=== PATIENT | female | born 1970 | race Caucasian/White ===

== ENCOUNTER 2017-05-23 09:18 | Emergency (ER) | payer OTHER, SELFPAY ==
[2017-05-23 09:19] VITALS: BP 159/89; PULSE 65; RESP 15; TEMP 36.9; O2SAT 100; BMI 36.3
--- NOTE | 2017-05-23 09:37 | ED.DCSUM_ITS ---
- ER Visit Summary Date of Service: 05/23/17 Chief Complaint: Chest pain History of Present Illness: The patient is a 47 F who was awakened from sleep at 0200 with chest heaviness located in the middle of her chest with radiation left-sided jaw associated with dyspnea. She reports she had difficulty getting back to sleep. At approximately 0430 she had nausea with dry heaves. She states the chest heaviness has been constant since onset. She states getting upright and walking causes her pain to be worse. There are no alleviating factors. She did complain of chills when she was awakened. She states she had a similar episode 5 years ago and had a cardiac catheterization because of a false positive stress test and her cardiac catheterization was normal with patent clumpy coronary vessels . Patient denies any fever night sweats weight loss or weight gain. She denies any ocular, visual or auditory symptoms. Denies any trouble with speech or swallowing. She denies cough. There is no history of PE or DVT. She has a leg pain, swelling discoloration. She denied diarrhea. She denies hematemesis , melena hematochezia. She denies any abdominal pain. She denies dysuria, frequency, urgency or hematuria. There is no history of trauma. Patient has history of depression and ulcerative colitis. Physical Examination: Vital signs are remarkable for blood pressure 159/89. HEENT exam is remarkable for mild excess thrombosis. (She denies history of thyroid disease and denies heat cold intolerance). Heart is regular without murmur, gallop or rub. S1 and S2 are normal. Lungs are clear to auscultation with good movement of air bilaterally. Abdomen is soft nontender with normal bowel sounds. There is no asymmetry, swelling, discoloration, leg vein distention, palpable cords or tenderness along the distribution of the deep venous system. Neuro exam is nonfocal. Test Results: Prehospital EKG was transmitted and revealed a sinus rhythm with no obvious ischemic changes. EKG in the department reveals a sinus rhythm rate of 60 with minimal nonspecific changes. Will obtain old for comparison. Single view portable chest x-ray was obtained and reviewed by me as normal. Cardiac silhouette, mediastinum and lung parenchyma are normal. Muscular skeletal structures are normal. CBC is unremarkable. BMP is unremarkable. Troponin is less than 0.02 with 7.5 hours of pain. Emergency Department Course and Treatment: Chest pain order set was initiated to evaluate patient's discomfort to determine cardiac versus pulmonary versus gastric versus other cause. Treatment Plan: In light of the fact the patient had a normal cardiac catheterization 5 years ago has no risk factors for coronary disease and has a heart score of less than 3 she will be discharged to home to follow-up with her PCP as needed. Disposition: Discharged home Impression: 1. Chest discomfort unknown etiology 2. Nausea and vomiting 3. History of depression This note was generated with [employer] dictation software. It may contain incorrect words, spelling, and punctuation that were not noted in review of the chart prior to signing ED Disposition - Plan for ED Patient: Disposition: Home or Assisted Living Chief Complaint: Chest Pain Instructions: ED Chest Pain NonCardiac Referrals: Charo Hooper MD [Primary Care Provider] - 3-5 Days
--- NOTE | 2017-05-23 09:47 | EKG12_ITS ---
Test Reason : CP Blood Pressure : / mmHG Vent. Rate : 060 BPM Atrial Rate : 060 BPM P-R Int : 160 ms QRS Dur : 084 ms QT Int : 378 ms P-R-T Axes : 041 025 011 degrees QTc Int : 378 ms Normal sinus rhythm with sinus arrhythmia Nonspecific ST abnormality Abnormal ECG Confirmed by ASHOK ARGUELLES, CHAVEZ ([id number]), department editor ALEXANDRIA PEÑA ([id number]) on 05/27/2017 1:13:03 PM Referred By: ADELIA Confirmed By:CHAVEZ PULIDO MD
--- NOTE | 2017-05-23 09:47 | RAD_ITS ---
STUDY: X-RAY CHEST REASON FOR EXAM: Female, 47 years old. Sent onset chest pain his morning. TECHNIQUE: Single AP upright portable chest view. COMPARISON: None available. FINDINGS: The lungs appear well ventilated and clear. There is no demonstrated pleural abnormality. Normal size heart. Normal mediastinum and romulo. Normal visualized pulmonary arteries. Normal visualized aortic arch and descending thoracic aorta. Trachea midline. Normal visualized thoracic spine. Normal visualized ribs, clavicles, and shoulders. There is no demonstrated abnormality of the visualized soft tissue structures of the upper abdomen. No subdiaphragmatic free air seen grossly. EKG wires overlie chest. Oxygen tubing overlies lower neck. RAD/Chest 1 View (Portable) IMPRESSION: Normal x-ray examination of the chest. Electronically Signed: Rogelio Chapin, at 11:08 EDT Tel , Service support ,
[2017-05-23 10:23] LABS: Absolute Lymphocyte Count 1.28 X10^3/ul (0.83-4.51); Absolute Neutrophil Count 5.3 X10^3/uL (2.0-7.7); Basophil# 0.02 X10^3/uL; Basophil% 0.3 % (0-1); Eosinophil# 0.03 X10^3/uL; Eosinophils% 0.4 % (0-5); Hematocrit 38.1 % (37-47); Hemoglobin 12.9 g/dl (12.0-15.0); Lymphocyte # 1.28 X10^3/ul (4.0); Lymphocyte % 18.5 % (19-41); Mean Corp Hgb Conc 33.9 g/gl (32-36); Mean Corpuscular Hgb 31.1 pg (27.0-32.0); Mean Corpuscular Volume 91.8 fL (81-99); Mean Platelet Vol. 10.3 fl (6.2-12.0); Monocyte# 0.31 X10^3/uL; Monocyte% 4.5 % (0-10); Neutrophil # 5.28 X10^3/uL (2.7-7.7); Neutrophil % 76.2 % (47-70); POSITIVE COUNT NO; POSITIVE DIFFERENTIAL NO; POSITIVE MORPHOLOGY NO; Platelet Count 226 K/mm3 (150-450); Red Blood Count 4.15 M/mm3 (4.2-5.4); White Blood Count 6.9 K/mm3 (4.4-11.0)
[2017-05-23 10:38] LABS: Anion Gap 8 (5-15); BUN 9 mg/dL (7-18); BUN/Creat Ratio 13.4 RATIO (10-20); Chloride 111 mmol/L (98-107); Creatinine, Serum 0.67 mg/dL (0.55-1.02); EST Glomerular Filtration Rate 99 mL/min (>60); Est Glom Filt Rate - Afr Amer 120 mL/min (>60); Estimated Creatinine Clearance 85.87 ml/min; Glucose 118 mg/dL (74-106); Potassium 3.5 mmol/L (3.5-5.1); Sodium Level 144 mmol/L (136-145)
[2017-05-23 10:41] VITALS: BP 145/85; PULSE 65; RESP 18; O2SAT 97
[2017-05-23 11:06] VITALS: BP 145/80; PULSE 74; RESP 18
[2017-05-23 11:19] VITALS: BP 141/85; RESP 74; TEMP -7.7; TEMP 18; O2SAT 98
== END 2017-05-23 11:21 | disposition home or self-care (01) ==
PROVIDERS: Emergency Provider Emergency Medicine; Family Provider Internal Medicine; PCP Internal Medicine
DX: R07.89 Other chest pain (principal); R11.2 Nausea with vomiting, unspecified; F32.9 Major depressive disorder, single episode, unspecified; Z87.891 Personal history of nicotine dependence; K51.90 Ulcerative colitis, unspecified, without complications; Z79.01 Long term (current) use of anticoagulants; Z79.899 Other long term (current) drug therapy
CPT/HCPCS: 71045; 80048; 84484; 85025; 93005; 99285; J7030

== ENCOUNTER 2017-10-18 07:30 | Outpatient (RCR) | payer OTHER, SELFPAY ==
--- NOTE | 2017-10-07 08:56 | HP.PTEVAL ---
Patient's Visit Information JAVON GUEVARA is a 47 year old F referred to Physical Therapy by Ismael Cantrell DPM with a diagnosis of R plantar fascitis, R PTTDq. Date of Evaluation: 10/02/17 Physical Therapist: Azeem Alicia - Visit Plan Frequency: 2x /Week Duration: 4-6 Weeks Plan: Start with US to plantar fascia origin, manual techniques, manual/HEP stretching, progressing to foot intrinsic strengthening and ankle stability exercises. - Subjective Subjective: Pt is here today for her initial evaluation with R plantar fascitis. Pt. reports having pain on and off for years. She had previously managed with injections, which had been helpful. Her most recent injections did not provide much help. Pt. reports having orthotics, but can not wear them as she had to wear dress shoes often with work. 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 Pt. denies N/T. Pt. reprots pain is at her plantar sufrace of her heel and into her plantar fascia. Pt. also reports having medial ankle pain. Pt. reports increased pain with walking and stairs, especially with a lot of walking. Pt. has reduced pain with sitting and lying. Pt. reports doing stretching x2 daily. Pt. is hopeful to reduce symptoms in order to complete her job and recreational walking without limitations or pain. - Pain R heel Pain Intensity (Out of 10): 5 Pain Intensity Range: 3, 8 - Objective POSTURE: Pt. has normal posture in stance, except: R foot slightly toes out, mild pes planus on her R side. Pt. has normal knee positioning. PALPATION: Pt. has increasred pain with palpation of post tib insertion, plantar fascia (origin the worst). NEUROLOGICAL: Pt. has normal senation throughout, normal DTR bilaterally. ROM: Pt. has tightness in R G/S complex- 10deg of DF, LLE at 17deg of DF. Pt. has normal rest of ROM without increase in symptoms. MMT: Pt. has normal strength throughout R ankle/foot, except decrease R foot intrinsic strength and decreased ankle INV 4/5. GAIT: Pt. ambulates with increased over pronation on R foot, increased R toes out. Pt. has slight R lateral lean durng R stance phase. STAIRS: Pt. has normal pattern, mild increase NW with R loaded phase with dsecending. - Goals Goal 1:: Pt. to be I with HEP. Goal Time Frame: 4-6 Weeks Goal 2:: Pt. to have normalized gait pattern without increase in symptoms for unlimited distances. Goal Time Frame: 4-6 Weeks Goal 3:: Pt. to have increased R foot intrinsic and ankle INV strength by 1/2 grade to reduce stress to longitudial arch with walking. Goal Time Frame: 4-6 Weeks Goal 4:: Pt. to complete her work day with 0-2/10 pain in R foot. Goal Time Frame: 4-6 Weeks Goal 5:: Pt. to have increased R ankle DF by 5-6 degress to decrease stress applied to plantar fascia with walking. Goal Time Frame: 4-6 Weeks - Rehabilitation Potential Physical Therapy Diagnosis: Pt. has signs and symptoms consistent with R plantar fascitis and posterior tibial tendonitis. Pt. has increased over pronation of R foot during stance phase with increased weakness of R foot intrinsics and post tib weakness. Pt. would benefit from PT to reduce stress applied to PTT during stance phase, increased strength of the musculature supporting her longitudinal arch. Rehabilitation Potential: Good - Anticipated Interventions Patient/Client Instruction: Educate patient on: Condition, Plan of Care, Risk Factors, Benefits of Fitness Program For the Purpose of:: To foster healthy habits, To improve decision making, To facilitate caregiver knowledge, To improve self management, To prevent re-injury, To improve ability to perform tasks related to life management, To improve tolerance to ADL's Therapeutic Exercise to Include: Strength training, Power training, Endurance training, Coordination, Postural training, Flexibilty training, Gait and locomotor training, Passive ROM, Active ROM For the Purpose of:: To decrease pain, To decrease swelling/inflammation, To increase ROM, To improve nutrient delivery to tissue, To increase oxygenation perfusion, To improve muscle performance and motor function, To improve gait and locomotor functions, To improve health of tissue, To decrease soft tissue restriction, To increase flexibility/ROM, To improve endurance, To improve balance Manual Therapy Techniques to Include: Trigger point massage, Massage, Mobilization, Functional dry needling, Soft tissue mobilization For the Purpose of:: To decrease pain, To decrease swelling/inflammation, To increase ROM, To improve nutrient delivery to tissue, To improve health of tissue, To decrease soft tissue restriction, To increase flexibility/ROM Ultrasound (thermal/non thermal): Yes For the Purpose of:: To decrease pain, To decrease swelling/inflammation, To increase ROM Thank you for the opportunity to evaluate your patient. For Medicare and Medicare HMO plans, please review the plan of care and approve it. It will need to be FAXED BACK to us at [phone] for Medicare purposes. Please let me know if there are questions or concerns regarding this plan of care. Physician Signature: Date:
--- NOTE | 2017-12-05 11:30 | HP.PTDCNRP_ITS ---
HP - Discharge Summary (1) - Patient Information JAVON GUEVARA was seen in my office for initial evaluation on 10/02/17. The following Plan of Care was established for this patient: Initial Frequency: 2x /Week Initial Duration: 4-6 Weeks - Anticipated Interventions Patient/Client Instruction: Educate patient on: Condition, Plan of Care, Risk Factors, Benefits of Fitness Program For the Purpose of:: To foster healthy habits, To improve decision making, To facilitate caregiver knowledge, To improve self management, To prevent re- injury, To improve ability to perform tasks related to life management, To improve tolerance to ADL's Therapeutic Exercise to Include: Strength training, Power training, Endurance training, Coordination, Postural training, Flexibilty training, Gait and loco motor training, Passive ROM, Active ROM For the Purpose of:: To decrease pain, To decrease swelling/inflammation, To increase ROM, To improve nutrient delivery to tissue, To increase oxygenation perfusion, To improve muscle performance and motor function, To improve gait and locomotor functions, To improve health of tissue, To decrease soft tissue restriction, To increase flexibility/ROM, To improve endurance, To improve balance Manual Therapy Techniques to Include: Trigger point massage, Massage, Mobilization, Functional dry needling, Soft tissue mobilization For the Purpose of:: To decrease pain, To decrease swelling/inflammation, To increase ROM, To improve nutrient delivery to tissue, To improve health of tissue, To decrease soft tissue restriction, To increase flexibility/ROM Ultrasound (thermal/non thermal): Yes For the Purpose of:: To decrease pain, To decrease swelling/inflammation, To increase ROM This patient was last seen in our office 10/18/17. Pertinent comments regarding their Physical therapy will appear below: Pt. was seen for her plantar fascitis. Pt. was treated with stretching, manual PT, DN, graston and US. Pt. was not make great improvements and decided to trial the EPAT machine with physician. Pt. has not jeimy seen in ~6 weeks and will be DC from PT at this point in time. At this point I will be discontinuing this patient from physical therapy. I would be happy to see this patient again in the future if found appropriate by the physician. Thank you! Azeem Alicia
== END 2017-10-18 19:00 | disposition home or self-care (01) ==
LOC: PT 07:30
PROVIDERS: Family Provider Internal Medicine; PCP Internal Medicine; Visit Provider Podiatrist
DX: M72.2 Plantar fascial fibromatosis (principal); M79.672 Pain in left foot; M21.6X9 Other acquired deformities of unspecified foot; M76.822 Posterior tibial tendinitis, left leg
CPT/HCPCS: 97035; 97140; 97161

== ENCOUNTER → 2018-02-03 07:00 | Outpatient (CLI) | payer OTHER, SELFPAY ==
--- NOTE | 2018-02-03 07:03 | BI_ITS ---
MAMMOGRAPHY - BILATERAL SCREENING REASON FOR EXAM: Female, 48 years old. Routine annual screening examination. PERTINENT HISTORY: Non-contributory. History of prior bilateral breast reduction surgery. TECHNIQUE: Digital bilateral breast allison (3D mammographic acquisition) in the CC and MLO projections. 2-D mediolateral oblique (MLO) and craniocaudad (CC) views of both breasts were obtained. CAD: Full Field Digital Mammography with Computer Added Detection was performed. COMPARISON: Comparison is made with prior study dated June 28, 2016 and July 08, 2014. FINDINGS: Breast Composition: The breasts are heterogeneously dense, which may obscure small masses. There are no dominant masses or suspicious calcifications. Stable small bilateral benign appearing axillary lymph nodes. No other significant abnormalities are identified. There has been no significant change since the prior study. BI/SCREENING MAMM (CAD), BILAT IMPRESSION: Stable bilateral screening mammogram. Yearly follow-up mammogram recommended. (A) ASSESSMENT CATEGORY: BIRADS Category 2: Benign. A letter regarding these results will be sent to the patient by the facility within 30 days. Approximately 10% of breast cancers are not detected by mammography. A normal mammogram should not delay biopsy of a clinically suspicious abnormality. [id number] Electronically Signed: Pavel Haas MD at 8:15 EST Tel [phone], Service support ,
== END ==
PROVIDERS: Family Provider Internal Medicine; PCP Internal Medicine; Referring Provider Internal Medicine; Visit Provider Internal Medicine
DX: Z12.31 Encounter for screening mammogram for malignant neoplasm of breast (principal)
CPT/HCPCS: 77063; 77067

== ENCOUNTER → 2018-09-23 14:03 | Outpatient (CLI) | payer SELFPAY ==
--- NOTE | 2018-09-23 14:09 | CT_ITS ---
STUDY: CARDIAC CALCIUM SCORING - CT CHEST REASON FOR EXAM: Female, 48 years old. Strong family history of coronary artery disease. Chest pain. RADIATION DOSAGE (If Supplied By Facility): CTDIvol = ( 12.19 ) mGy, DLP = ( 195.04 ) mGycm TECHNIQUE: Axial non-enhanced images were acquired through the heart for the sole purpose of measuring coronary artery calcium. Individualized dose optimization techniques were used for this CT. COMPARISON: None. FINDINGS: Please see the patient's medical record for a personalized calcium score. The visualized lungs are clear. The visualized soft tissues are within normal limits. CT/Limited Chest CT w/CCTA IMPRESSION: Please see the patient's medical record for a personalized calcium score. Please go to: [email or web address] , for a description of the calculator. Electronically Signed: Nick Platt, at 15:11 EDT Tel , Service support ,
[2018-09-23 14:28] VITALS: BP 158/77; PULSE 60; RESP 16; O2SAT 99; BMI 38.6
--- NOTE | 2018-09-23 16:02 | CA.SCORE ---
Calcium Scoring Date of Study:: 09/23/18 Coronary Calcium Scoring: High-resolution Computed Tomographic imaging of the chest was performed on 09/23/2018 with particular attention paid to the coronary arteries. Images from the examination were analyzed for the presence and extent of coronary artery calcification , using coronary calcium quantification software. The patient tolerated the procedure well and there were no complications. The results of the coronary calcification analysis are provided below. - Findings Left Main (LM): 0 Left Anterior Descending (LAD): 0 Left Circumflex (LCX): 5.96 Right Coronary Artery (RCA): 0 Total Agatston Score: 5.96 - Conclusion Calcium Scoring Interpretation: 0 No identifiable atherosclerotic plaque. Very low cardiovascular disease risk. <5% chance of presence coronary artery disease A Negative Examination 1-10 Minimal Plaque burden. Significant coronary artery disease very unlikely. 11-100 Mild plaque burden. Likely mild or minimal coronary atherosclerosis. 101-400 Moderate plaque burden Moderate non-obstructive coronary artery disease highly likely. Over 400 Extensive plaque burden. High likelihood of at least one significant coronary stenosis (>50% diameter) Calcium Score: 1 -10 Significant coronary artery disease very unlikely - 1. Percentile ranking: Between 75% and 95% of people of the same gender/similar age had the same or lower scores; 2. Continue cardiovascular risk factor evaluation and care as deemed appropriate.
== END ==
PROVIDERS: Family Provider Internal Medicine; PCP Internal Medicine; Referring Provider Internal Medicine; Visit Provider Internal Medicine
DX: Z82.49 Family history of ischemic heart disease and other diseases of the circulatory system (principal); E78.00 Pure hypercholesterolemia, unspecified
CPT/HCPCS: 75571; 76380

== ENCOUNTER → 2019-02-05 09:33 | Outpatient (CLI) | payer OTHER, SELFPAY ==
[2018-09-23 14:28] VITALS: BMI 38.6
--- NOTE | 2019-02-05 09:36 | BI_ITS ---
MAMMOGRAPHY - BILATERAL SCREENING REASON FOR EXAM: Female, 49 years old. Routine annual screening examination. PERTINENT HISTORY: Non-contributory. Prior bilateral breast reduction surgery. TECHNIQUE: Digital bilateral breast neri (3D mammographic acquisition) in the CC and MLO projections. 2-D mediolateral oblique (MLO) and craniocaudad (CC) views of both breasts were obtained. CAD: Full Field Digital Mammography with Computer Added Detection was performed. COMPARISON: Comparison is made with prior examination dated November 04, 2017 and June 28, 2016. FINDINGS: Breast Composition: The breasts are heterogeneously dense, which may obscure small masses. There are no dominant masses or suspicious calcifications. Stable benign-appearing bilateral axillary lymph nodes No other significant abnormalities are identified. There has been no significant change since the prior study. BI/SCREEN MAMM (CAD) W/NERI BILAT IMPRESSION: Stable bilateral screening mammogram. Yearly follow-up mammogram recommended. (A) ASSESSMENT CATEGORY: BIRADS Category 2: Benign. A letter regarding these results will be sent to the patient by the facility within 30 days. Approximately 10% of breast cancers are not detected by mammography. A normal mammogram should not delay biopsy of a clinically suspicious abnormality. [id number] Electronically Signed: Pavel Haas, at 13:30 EST , Service support ,
== END ==
PROVIDERS: Family Provider Internal Medicine; PCP Internal Medicine; Referring Provider Internal Medicine; Visit Provider Internal Medicine
DX: Z12.31 Encounter for screening mammogram for malignant neoplasm of breast (principal)
CPT/HCPCS: 77063; 77067

== ENCOUNTER → 2020-02-11 07:42 | Outpatient (CLI) | payer OTHER, SELFPAY ==
[2018-09-23 14:28] VITALS: BMI 38.6
--- NOTE | 2020-02-11 07:44 | BI_ITS ---
MAMMOGRAPHY - BILATERAL SCREENING REASON FOR EXAM: Female, 50 years old. Routine annual screening examination. PERTINENT HISTORY: Non-contributory. History of prior bilateral breast reduction surgery. TECHNIQUE: Digital bilateral breast neri (3D mammographic acquisition) in the CC and MLO projections. 2-D mediolateral oblique (MLO) and craniocaudad (CC) views of both breasts were obtained. CAD: Full Field Digital Mammography with Computer Added Detection was performed. COMPARISON: Comparison is made with prior study dated 02/05/2019 and 02/03/2018. FINDINGS: Breast Composition: The breasts are heterogeneously dense, which may obscure small masses. There are no dominant masses or suspicious calcifications. Stable benign-appearing bilateral axillary lymph nodes. No other significant abnormalities are identified. There has been no significant change since the prior study. BI/SCREEN MAMM (CAD) W/NERI BILAT IMPRESSION: Stable bilateral screening mammogram. Yearly follow-up mammogram recommended. (A) ASSESSMENT CATEGORY: BIRADS Category 2: Benign. A letter regarding these results will be sent to the patient by the facility within 30 days. Approximately 10% of breast cancers are not detected by mammography. A normal mammogram should not delay biopsy of a clinically suspicious abnormality. [id number] Electronically Signed: Pavel Haas, at 8:45 EST , Service support ,
== END ==
PROVIDERS: PCP Internal Medicine; Referring Provider Obstetrics & Gynecology Gynecology; Visit Provider Obstetrics & Gynecology Gynecology
DX: Z12.31 Encounter for screening mammogram for malignant neoplasm of breast (principal)
CPT/HCPCS: 77063; 77067

== ENCOUNTER → 2022-02-12 | Outpatient (CLI) | payer OTHER, SELFPAY ==
--- NOTE | 2022-02-12 09:04 | BI_ITS ---
MAMMOGRAPHY - BILATERAL SCREENING REASON FOR EXAM: Female, 52 years old. Routine annual screening examination. PERTINENT HISTORY: Non-contributory. History of prior bilateral breast reduction surgery. TECHNIQUE: Digital bilateral breast neri (3D mammographic acquisition) in the CC and MLO projections. 2-D mediolateral oblique (MLO) and craniocaudad (CC) views of both breasts were obtained. CAD: Full Field Digital Mammography with Computer Added Detection was performed. COMPARISON: Comparison is made with prior study dated 02/11/2020 and 02/05/2019. FINDINGS: Breast Composition: The breasts are heterogeneously dense, which may obscure small masses. There are no dominant masses or suspicious calcifications. Stable benign-appearing bilateral axillary lymph nodes. No other significant abnormalities are identified. There has been no significant change since the prior study. BI/SCRN MAMM (CAD)W/NERI BILAT IMPRESSION: Stable bilateral screening mammogram. Yearly follow-up mammogram recommended. (A) ASSESSMENT CATEGORY: BIRADS Category 2: Benign. A letter regarding these results will be sent to the patient by the facility within 30 days. Approximately 10% of breast cancers are not detected by mammography. A normal mammogram should not delay biopsy of a clinically suspicious abnormality. [id number] Electronically Signed: Pavel Haas MD at 15:33 EST ,
== END | disposition home or self-care (01) ==
LOC: OPBI 09:01
PROVIDERS: PCP Internal Medicine; Referring Provider Internal Medicine; Visit Provider Internal Medicine
DX: Z12.31 Encounter for screening mammogram for malignant neoplasm of breast (principal)
CPT/HCPCS: 77063; 77067

== ENCOUNTER → 2022-04-04 | Outpatient (CLI) | payer OTHER, SELFPAY ==
[2022-04-04 15:39] LABS: Absolute Lymphocyte Count 2.07 X10^3/uL (0.83-4.51); Absolute Neutrophil Count 4.1 X10^3/uL (2.0-7.7); Basophil# 0.04 X10^3/uL; Basophil% 0.6 % (0-1); Eosinophils% 1.5 % (0-5); Hematocrit 38.3 % (37-47); Hemoglobin 12.9 g/dL (12.0-15.0); Lymphocyte # 2.07 X10^3/ul (0.83-4.51); Lymphocyte % 30.3 % (19-41); Mean Corp Hgb Conc 33.7 g/dL (32-36); Mean Corpuscular Hgb 30.4 pg (27.0-32.0); Mean Corpuscular Volume 90.3 fL (81-99); Mean Platelet Vol. 10.2 fl (6.2-12.0); Monocyte# 0.49 X10^3/uL; Monocyte% 7.2 % (0-10); NRBC Flagged by Analyzer 0 % (0-5); Neutrophil # 4.12 X10^3/uL (2.7-7.7); Neutrophil % 60.3 % (47-70); Platelet Count 229 K/mm3 (150-450); RBC Distribution Width CV 12.5 % (11.6-14.6); RBC Distribution Width SD 40.7 fl (35.1-43.9); Red Blood Count 4.24 M/mm3 (4.2-5.4); White Blood Count 6.8 K/mm3 (4.4-11.0)
[2022-04-04 15:56] LABS: Erythrocyte Sedimentation Rate 8 mm/hr (0-30)
[2022-04-04 16:40] LABS: ALB/GLOB Ratio 1.1 RATIO (0.9-2.4); AST(SGOT) 15 U/L (15-37); Alanine Aminotransfer ALT/SGPT 28 U/L (13-56); Albumin, Serum 3.8 g/dL (3.2-5.0); Alkaline Phosphatase 84 U/L (45-117); Anion Gap 5 (5-15); BUN 16 mg/dL (7-18); BUN/Creat Ratio 20.1 RATIO (10-20); CRP < 2.90 mg/L (0.0-3.0); Calcium,Total 9.3 mg/dL (8.5-10.1); Chloride 108 mmol/L (98-107); EST Glomerular Filtration Rate 80 mL/min (>60); Est Glom Filt Rate - Afr Amer 97 mL/min (>60); Globulin 3.5 g/dL (2.2-4.2); Glucose 98 mg/dL (74-106); LDH 168 U/L (84-246); Potassium 3.6 mmol/L (3.5-5.1); Protein, Total 7.3 g/dL (6.4-8.2); Sodium Level 141 mmol/L (136-145)
[2022-04-06 15:09] LABS: Anti-Centromere B Ab <0.2 AI (0.0-0.9); Anti-Chromatin <0.2 AI (0.0-0.9); Anti-Jo <0.2 AI (0.0-0.9); Anti-Scleroderma-70 AB <0.2 AI (0.0-0.9); Endomysial Antibody IgA Negative (Negative); RNP Ab <0.2 AI (0.0-0.9); SJOGREN'S Anti-SS-A test < 0.2 AI (0.0-0.9); SJOGREN'S Anti-SS-B test < 0.2 AI (0.0-0.9); Smith Ab <0.2 AI (0.0-0.9)
[2022-04-06 20:06] LABS: Immunoglobulin A 98 mg/dL (87-352); t-Transglutaminase IgA <2 U/mL (0-3)
[2022-04-06 20:10] LABS: Anti-dsDNA Ab 2 IU/mL (0-9)
[2022-04-12 08:09] LABS: Albumin 3.7 g/dL (2.9-4.4); Alpha-1-Globulins 0.2 g/dL (0.0-0.4); Alpha-2-Globulins 0.6 g/dL (0.4-1.0); Cytoplasmic Ab (C-ANCA) <1:20 titer (Neg:<1:20); Gamma Globulin 1.2 g/dL (0.4-1.8); Immunoglobulin A 103 mg/dL (87-352); Immunoglobulin E 50 IU/mL (6-495); Immunoglobulin G 1147 mg/dL (586-1602); Immunoglobulin M 160 mg/dL (26-217); PROEL- TOTAL PROTEIN 6.8 g/dL (6.0-8.5)
[2022-04-13 18:53] LABS: Perinuclear Ab (P-ANCA) <1:20 titer (Neg:<1:20)
== END | disposition home or self-care (01) ==
LOC: LAB 14:36
PROVIDERS: PCP Internal Medicine; Visit Provider Nurse Practitioner Adult Health
DX: K51.90 Ulcerative colitis, unspecified, without complications (principal)
CPT/HCPCS: 36415; 80053; 82784; 82785; 83516; 83615; 84165; 85025; 85652; 86140; 86225; 86235; 86255; 86256; 86334

== ENCOUNTER → 2022-05-11 | Outpatient (CLI) | payer OTHER, SELFPAY ==
[2022-05-15 08:58] LABS: Calprotectin, Stool 48 ug/g (0-120)
== END | disposition home or self-care (01) ==
LOC: LABSPEC 07:46
PROVIDERS: PCP Internal Medicine; Referring Provider Nurse Practitioner Adult Health; Visit Provider Nurse Practitioner Adult Health
DX: K51.90 Ulcerative colitis, unspecified, without complications (principal)
CPT/HCPCS: 83630; 83993

== ENCOUNTER 2022-07-17 10:52 | Day surgery (SDC) | payer OTHER, SELFPAY ==
[2022-07-17] VITALS (7 sets, daily range): BP systolic 112–132; BP diastolic 73–80; PULSE 69–83; RESP 16–18; TEMP 36.6–37; O2SAT 98–100; BMI 41.0
[2022-07-17] MEDS: Lactated Ringers 1,000 ML 15 ML IV (11:15)
--- NOTE | 2022-07-17 11:45 | HP.PCM_ITS ---
History and Physical Date of Admission: 07/17/22 ?52 F who presents to the office today today to establish for ulcerative colitis which was diagnosed at age 17. Had alopecia from asacol at approx age 20. She took Lialda (once daily mesalamine) 2 pills daily for at least 10 yrs but recently stopped it since she didn't note any change in symptoms. Flares at least once a month x several days at a time, bloating, pain. Not sure if IBD or IBS when she has symptoms. Increased abd and rectal pain in last few months--rectal and lower abd pains. Either feels constipated or to lesser extent has diarrhea. Has frequent tenesmus. No melena or hematochezia. Doesn't take anything for constipation. Tries to watch what she eats. Lactose intolerant. Hiatal hernia diagnosed last year on EGD. Heartburn, burping. Taking pantoprazole 40 mg once a day helps. No dysphagia but can feel pills passing in esophagus. No nausea, vomiting, early satiety. No upper abd pain. Very bothered by constipation and bloating. 2021 EGD 2020 Colonoscopy PMH: chronic idiopathic hives (prednisone x 6 mos in 2021, gained 30 lbs), anxiety, depression, endometriosis, hyperlipidemia, insomnia, migraines, vitamin D deficiency Past surgical history: Left knee arthroscopy, breast reduction Father had colon cancer age 76 ROS Const Constitutional: No fatigue ENT ENT: No difficulty swallowing Gastro GI: No abdominal pain, belching, bloating, change in bowel habits, change in stool character, coffee ground emesis, constipation, cramping, diarrhea, heartburn, difficulty swallowing, feeling full early, excessive flatus, incontinent of stools, Vomiting blood/hematemesis, Blood in stool, loose stools, Black,tarry stools, nausea/dyspepsia, pain with swallowing, vomiting or other Musc Musculoskeletal: Positive for joint swelling, numbness and tingling; No joint pain Skin Skin: No yellowing of the eye or itchy eyes Neuro Neurology: Positive for numbness and tingling Psych Psychiatric: Positive for anxiety and Positive for depression Endo Endocrine: No fatigue Aller/Imm Allergy/Immunologic: No itchy eyes Moose/Lymp Hematologic/Lymphatic: No easy bleeding or easy bruising Exam Const General: cooperative and comfortable Nutritional Appearance: obese Orientation: alert, awake and oriented x3 HENMT Head: normal to inspection Eyes Sclera: sclerae normal Neck Neck: normal visual inspection Resp Effort & Inspection: normal respiratory effort Skin General: no rashes or lesions noted Neuro Gait: normal gait Psych Mood: congruent mood Quality Reporting Tobacco Screening ([facility] 138) Smoking Status: Former smoker Assessment and Plan Assessment and Plan (1) Ulcerative colitis: ?Status:?Chronic ?Plan: 52 yr old female with ulcerative colitis, most recently treated with Lialda which she stopped due to perceived lack of efficacy, who is interested in establishing with new GI for possible different treatment Labs to eval for inflammation, other autoimmune, celiac; will call her with results Colonoscopy to eval/bx for UC activity, f/u in office 2 wks later Once we determine if UC is active then we can discuss other treatment options Miralax daily for constipation (2) Irritable bowel syndrome: ?Plan: see above ? ? ? Orders: Orders Comprehensive Metabolic Profil Today K51.90 - Ulcerative colitis, unspecified, without complications ? CRP Today K51.90 - Ulcerative colitis, unspecified, without complications ? LDH Today K51.90 - Ulcerative colitis, unspecified, without complications ? CBC W/Diff, Automated Today K51.90 - Ulcerative colitis, unspecified, without complications ? Erythrocyte Sed Rate Today K51.90 - Ulcerative colitis, unspecified, without complications ? STU Comprehensive Panel Today K51.90 - Ulcerative colitis, unspecified, without complications ? Calprotectin, Stool Today K51.90 - Ulcerative colitis, unspecified, without complications ? Stool Lactoferrin/WBC Today K51.90 - Ulcerative colitis, unspecified, without complications ? ANCA Today K51.90 - Ulcerative colitis, unspecified, without complications ? Celiac Disease Profile Today K51.90 - Ulcerative colitis, unspecified, without complications ? Immunoglobulins G/A/M/E Today K51.90 - Ulcerative colitis, unspecified, without complications ? ZACHARIAH + Protein Elect, Serum Today K51.90 - Ulcerative colitis, unspecified, without complications ? I have examined the patient and the H&P has been reviewed. There are no clinical changes since date of exam.
--- NOTE | 2022-07-17 12:00 | COLBX_PTH ---
PATIENT: JAVON GUEVARA LOC: EN U#:[id number] AGE/SX: 52/F ROOM: RE07/17/[address]: Dr. Anthony Coelho DO : 1970 BED: DIS: 07/17/2022 SPEC #: [id number] RECD: 07/17/22 15:02 STATUS: FELIPE RELm #: [id number] GAGANDEEP: 07/17/22 12:[address]: Antohny Coelho DEPT: SURGICAL PATHOLOGY RECD BY: Caty Galeano ENTERED: 07/18/22 10:38 SP TYPE: COLON BX OT DR: Dr. Charo Hooper MD Tissues: A - Ileum, NOS B - COLON BIOPSY Procedures: Surgery Specimen Level IV HEADER OPERATION: Colonoscopy (MAC) PRE-OP DIAGNOSIS: Ulcerative colitis TISSUE SUBMITTED: A ? Terminal ileum biopsy, B ? Random colon biopsy MICROSCOPIC DIAGNOSIS A. Terminal ileum, biopsy: No pathologic change. B. Colon, random biopsy: No pathologic change. AM:james 07/19/2022 MICROSCOPIC DESCRIPTION Slides are reviewed. GROSS DESCRIPTION A - Received in fixative is one container labeled with the patient's name and designated terminal ileum biopsy. The specimen consists of multiple irregular fragments of light freitas soft tissue that in aggregate measure 1.5 x 0.3 x 0.1 cm. The specimen is totally submitted in one cassette. B - Received in fixative is one container labeled with the patient's name and designated random colon biopsy. The specimen consists of multiple irregular fragments of light freitas soft tissue that in aggregate measure 1.5 x 0.8 x 0.1 cm. The specimen is totally submitted in one cassette. / SJ:james 07/18/2022 TC:5 CPT: 02902 x2
--- NOTE | 2022-07-17 12:23 | OP.COLON_ITS ---
Patient Name: Stella Herr Procedure Date: 07/17/2022 11:45 AM Date of : 1970 Age: 52 Procedure: Colonoscopy Indications: Generalized abdominal pain, Family history of colon cancer in a first-degree relative Providers: Anthony Coelho DO Referring MD: Anthony Coelho DO Medicines: Monitored Anesthesia Care Patient Profile: This is a 52 year old female. Refer to note in patient chart for documentation of history and physical. Last Colonoscopy: 3 years ago. Complications: No immediate complications. Procedure: Pre-Anesthesia Assessment: - Prior to the procedure, a History and Physical was performed, and patient medications and allergies were reviewed. The risks and benefits of the procedure and the sedation options and risks were discussed with the patient. All questions were answered and informed consent was obtained. Patient identification and proposed procedure were verified by the physician. Mental Status Examination: alert and oriented. Airway Examination: normal oropharyngeal airway and neck mobility. Respiratory Examination: clear to auscultation. CV Examination: normal. Prophylactic Antibiotics: The patient does not require prophylactic antibiotics. Prior Anticoagulants: The patient has taken no previous anticoagulant or antiplatelet agents. ASA Grade Assessment: II - A patient with mild systemic disease. After reviewing the risks and benefits, the patient was deemed in satisfactory condition to undergo the procedure. The anesthesia plan was to use monitored anesthesia care (MAC). Immediately prior to administration of medications, the patient was re-assessed for adequacy to receive sedatives. The heart rate, respiratory rate, oxygen saturations, blood pressure, adequacy of pulmonary ventilation, and response to care were monitored throughout the procedure. The physical status of the patient was re-assessed after the procedure. After I obtained informed consent, the scope was passed under direct vision. Throughout the procedure, the patient's blood pressure, pulse, and oxygen saturations were monitored continuously. The colonoscope was introduced through the anus and advanced to the terminal ileum. The colonoscopy was performed without difficulty. The patient tolerated the procedure well. The quality of the bowel preparation was adequate. Scope In: 11:56:50 AM Scope Withdrawal Time 0 hours 11 minutes 22 seconds Scope Out: 12:11:23 PM Total Procedure Duration Time 0 hours 14 minutes 33 seconds Findings: The perianal and digital rectal examinations were normal. An area of mildly congested mucosa was found at the hepatic flexure. Biopsies were taken with a cold forceps for histology. Verification of patient identification for the specimen was done. Estimated blood loss was minimal. Scattered small and large-mouthed diverticula were found in the recto-sigmoid colon and sigmoid colon. A patchy area of the distal ileum and terminal ileum was congested. Biopsies were taken with a cold forceps for histology. Verification of patient identification for the specimen was done. Estimated blood loss was minimal. Impression: - Congested mucosa at the hepatic flexure. Biopsied. - Diverticulosis in the recto-sigmoid colon and in the sigmoid colon. - Congested mucosa in the distal ileum and in the terminal ileum. Biopsied. Recommendation: - Discharge patient to home. - Resume previous diet. - Continue present medications. - Await pathology results. - Repeat colonoscopy in 5 years for surveillance. Procedure Code(s): --- Professional --- 47276, Colonoscopy, flexible; with biopsy, single or multiple CPT copyright 2017 [employer]. All rights reserved. The codes documented in this report are preliminary and upon air traffic controller review may be revised to meet current compliance requirements. Anthony Coelho DO 07/17/2022 12:23:18 PM This report has been signed electronically. Number of Addenda: 0 Note Initiated On: 07/17/2022 11:45 AM
--- NOTE | 2022-07-17 12:23 | OP.CCLET_ITS ---
07/17/2022 Charo Hooper Re : Colonoscopy procedure for Stella Herr Dear Sandie This procedure was performed on Sunday, July 17, 2022. My impressions and recommendations are as follows: Impressions : - Congested mucosa at the hepatic flexure. Biopsied. - Diverticulosis in the recto-sigmoid colon and in the sigmoid colon. - Congested mucosa in the distal ileum and in the terminal ileum. Biopsied. Recommendations : - Discharge patient to home. - Resume previous diet. - Continue present medications. - Await pathology results. - Repeat colonoscopy in 5 years for surveillance. My findings are described in the full procedure note, which is enclosed. If I can be of further assistance, please feel free to contact me at . Sincerely, Anthony Coelho, 07/17/2022 12:23:18 PM This report has been signed electronically.
== END 2022-07-17 13:04 | disposition home or self-care (01) ==
LOC: EN 10:53 → AC 10:54
PROVIDERS: PCP Internal Medicine; Referring Provider Internal Medicine; Visit Provider Internal Medicine Gastroenterology
PROC: 0DJD8ZZ Inspection of Lower Intestinal Tract, Via Natural or Artificial Opening Endoscopic (ICD-10-PCS; CPT 45378; principal; 2022-07-17 11:55)
DX: K57.30 Diverticulosis of large intestine without perforation or abscess without bleeding (principal); K51.90 Ulcerative colitis, unspecified, without complications; Z87.891 Personal history of nicotine dependence; Z80.0 Family history of malignant neoplasm of digestive organs; Z79.899 Other long term (current) drug therapy
CPT/HCPCS: 45380; 88305; J7120; J2405

== ENCOUNTER → 2023-09-02 | Outpatient (CLI) | payer OTHER, SELFPAY ==
--- NOTE | 2023-09-02 13:47 | BI_ITS ---
MAMMOGRAPHY - BILATERAL SCREENING REASON FOR EXAM: Female, 53 years old. Routine annual screening examination. PERTINENT HISTORY: Non-contributory. History of prior bilateral breast reduction surgery. TECHNIQUE: Digital bilateral breast neri (3D mammographic acquisition) in the CC and MLO projections. 2-D mediolateral oblique (MLO) and craniocaudad (CC) views of both breasts were obtained. CAD: Full Field Digital Mammography with Computer Added Detection was performed. COMPARISON: Comparison is made with prior examination dated February 12, 2022 and February 11, 2020. FINDINGS: Breast Composition: The breasts are heterogeneously dense, which may obscure small masses. There are no dominant masses or suspicious calcifications. Stable benign appearing bilateral axillary lymph nodes. No other significant abnormalities are identified. There has been no significant change since the prior study. BI/SCRN MAMM (CAD)W/NERI BILAT IMPRESSION: Stable bilateral screening mammogram. Yearly follow-up mammogram recommended. (A) ASSESSMENT CATEGORY: BIRADS Category 2: Benign. A letter regarding these results will be sent to the patient by the facility within 30 days. Approximately 10% of breast cancers are not detected by mammography. A normal mammogram should not delay biopsy of a clinically suspicious abnormality. [id number] Electronically Signed: Pavel Haas MD at 14:58 EDT ,
== END | disposition home or self-care (01) ==
LOC: OPBI 13:46
PROVIDERS: PCP Internal Medicine; Referring Provider Internal Medicine; Visit Provider Internal Medicine
DX: Z12.31 Encounter for screening mammogram for malignant neoplasm of breast (principal)
CPT/HCPCS: 77063; 77067

== ENCOUNTER → 2023-10-22 | Outpatient (CLI) | payer OTHER, SELFPAY ==
[2023-10-22 08:24] LABS: Absolute Lymphocyte Count 1.84 X10^3/uL (0.83-4.51); Absolute Neutrophil Count 3.5 X10^3/uL (2.0-7.7); Basophil# 0.03 X10^3/uL; Basophil% 0.5 % (0-1); Eosinophils% 1.7 % (0-5); Hematocrit 35.1 % (37-47); Hemoglobin 11.8 g/dL (12.0-15.0); Lymphocyte # 1.84 X10^3/ul (0.83-4.51); Lymphocyte % 31.4 % (19-41); Mean Corp Hgb Conc 33.6 g/dL (32-36); Mean Corpuscular Hgb 30.6 pg (27.0-32.0); Mean Corpuscular Volume 90.9 fL (81-99); Mean Platelet Vol. 9.9 fl (6.2-12.0); Monocyte# 0.36 X10^3/uL; Monocyte% 6.1 % (0-10); NRBC Flagged by Analyzer 0 % (0-5); Neutrophil % 59.8 % (47-70); Platelet Count 225 K/mm3 (150-450); RBC Distribution Width CV 12.4 % (11.6-14.6); RBC Distribution Width SD 40.5 fl (35.1-43.9); Red Blood Count 3.86 M/mm3 (4.2-5.4); White Blood Count 5.9 K/mm3 (4.4-11.0)
[2023-10-22 08:34] LABS: Erythrocyte Sedimentation Rate 11 mm/hr (0-30)
[2023-10-22 13:27] LABS: ALB/GLOB Ratio 0.9 RATIO (0.9-2.4); AST(SGOT) 16 U/L (15-37); Alanine Aminotransfer ALT/SGPT 41 U/L (13-56); Albumin, Serum 3.3 g/dL (3.2-5.0); Alkaline Phosphatase 97 U/L (45-117); Anion Gap 8 (5-15); BUN 14 mg/dL (7-18); BUN/Creat Ratio 15.6 RATIO (10-20); CRP < 2.90 mg/L (0.0-3.0); Calcium,Total 9.2 mg/dL (8.5-10.1); Chloride 109 mmol/L (98-107); EST Glomerular Filtration Rate 70 mL/min (>60); Est Glom Filt Rate - Afr Amer 84 mL/min (>60); Globulin 3.8 g/dL (2.2-4.2); Glucose 114 mg/dL (74-106); Potassium 3.6 mmol/L (3.5-5.1); Protein, Total 7.1 g/dL (6.4-8.2); Sodium Level 141 mmol/L (136-145)
[2023-10-24 22:07] LABS: Calprotectin, Stool 336 ug/g (0-120)
== END | disposition home or self-care (01) ==
LOC: LAB 08:04
PROVIDERS: PCP Internal Medicine; Referring Provider Internal Medicine Gastroenterology; Visit Provider Internal Medicine Gastroenterology
DX: K51.90 Ulcerative colitis, unspecified, without complications (principal)
CPT/HCPCS: 36415; 80053; 83993; 85025; 85652; 86140; 87506

== ENCOUNTER 2023-12-24 12:53 | Day surgery (SDC) | payer OTHER, SELFPAY ==
[2023-12-24] VITALS (8 sets, daily range): BP systolic 119–150; BP diastolic 78–93; PULSE 77–88; RESP 16–18; TEMP 36.3–36.8; O2SAT 95–100; BMI 39.3
--- NOTE | 2023-12-24 | COLBX_PTH ---
PATHOLOGY RESULTS PATIENT: JAVON GUEVARA LOC: EN U#:[id number] AGE/SX: 53/F ROOM: RE12/24/[address]: Dr. Anthony Coelho DO : 1970 BED: DIS: 12/24/2023 SPEC #: [id number] RECD: 12/24/23 18:18 STATUS: FELIPE RELm #: [id number] GAGANDEEP: 12/24/23 00:[address]: Anthony Coelho DEPT: SURGICAL PATHOLOGY RECD BY: Nikos Wei ENTERED: 12/25/23 09:31 SP TYPE: COLON BX OTHR DR: Dr. Charo Hooper MD Tissues: Ileum, NOS COLON BIOPSY Rectum, NOS Procedures: Surgery Specimen Level IV HEADER OPERATION: Colonoscopy, biopsy PRE-OP DIAGNOSIS: Ulcerative colitis, irritable bowel syndrome TISSUE SUBMITTED: A- Terminal ileum biopsy, B- Random colonic biopsy, C- Rectal biopsy MICROSCOPIC DIAGNOSIS A. Terminal ileum, biopsy: Fragments of small intestinal mucosa, no pathologic diagnosis. B. Colon, random biopsy: Fragments of colonic mucosa, no pathologic diagnosis. C. Rectal biopsy: Fragments of colonic mucosa, no pathologic diagnosis. 12/26/2023 MICROSCOPIC DESCRIPTION Slides are reviewed. GROSS DESCRIPTION A. Received in fixative is one container labeled with the patient's name and designated Terminal ileum biopsy. The specimen consists of multiple irregular fragments of light freitas soft tissue that in aggregate measure 1.5 x 0.3 x 0.1 cm. The specimen is totally submitted in one cassette. B. Received in fixative is one container labeled with the patient's name and designated Random colonic biopsy. The specimen consists of multiple irregular fragments of light freitas soft tissue that in aggregate measure 1.0 x 0.3 x 0.1 cm. The specimen is totally submitted in one cassette. C. Received in fixative is one container labeled with the patient's name and designated Rectal biopsy. The specimen consists of multiple irregular fragments of light freitas soft tissue that measures 0.4 x 0.2 x 0.1 cm. The specimen is totally submitted in one cassette. 12/25/2023 TC:4 CPT:74314v5
--- NOTE | 2023-12-24 13:17 | PRE.ANES_ITS ---
ASA Classification* ASA Classification ASA Classification: 3 Assessment & Plan Anesthesia* Anesthesia Assessment Anesthesia Assessment: Discussed sedation and/or anesthesia options, risks, benefits, and alternatives with patient/parents/legal guardian/POA. Questions invited. The patient/parents/legal guardian/POA seems to understand and agrees to proceed with anesthesia plan. Reviewed the physical assessment, medical history, allergy history and patient home medications list prior to surgery/procedure/anesthetic and documented any changes. Performed airway and anesthesia risk assessments. Anesthesia Type Anesthesia Type: MAC (SEE WRITTEN PRE ANESTHESIA RECORD FOR FULL ASSESSMENT) Anesthesia Focused Assessment* Airway Assessment Mouth opens: >3 cm Mallampati Score: II Focused Labs Anesthesia Preop lab: CBC WBC 5.9 K/mm3 (4.4-11.0) 10/22/23 08:06 RBC 3.86 M/mm3 (4.2-5.4) L 10/22/23 08:06 Hgb 11.8 g/dL (12.0-15.0) L 10/22/23 08:06 Hct 35.1 % (37-47) L 10/22/23 08:06 Plt Count 225 K/mm3 (150-450) 10/22/23 08:06 CHEMISTRY Potassium 3.6 mmol/L (3.5-5.1) 10/22/23 08:06 Sodium 141 mmol/L (136-145) 10/22/23 08:06 BUN 14 mg/dL (7-18) 10/22/23 08:06 Creatinine 0.90 mg/dL (0.55-1.02) 10/22/23 08:06 Glucose 114 mg/dL (74-106) H 10/22/23 08:06 COAG PT 13.0 SECONDS (11.9-14.4) 01/03/12 11:22 Pre-Assessment Diagnosis/Proposed Procedure Planned Operative Procedure(s): cscope Anesthesia History Anesthesia History - mineral technologist: Anesthesia History - mineral technologist Hx Hospitalization No 11/27/23 12:44 Any Problems With Anesthesia Yes: NAUSEA 11/27/23 12:44 Cholinesterase deficiency No 11/27/23 12:44 You/Your Family Experience No 11/27/23 12:44 fever (hyperthermia) with Relationship Recent Exposure to Contagious No 07/17/22 11:14 Disease Does patient have nerve No 11/27/23 12:44 stimulator Patient instructed to have device shut off --Does patient have Pacemaker or ICD? When Was Last Pacemaker Check QUESTION #4 FULL TEXT: You/Your Family Experience fever (hyperthermia) with Anesthesia Last Oral Intake Last Oral intake: Last Oral Intake NPO since Meds taken in AM with sips of water? Meds patient instructed to take am of surgery PONV PONV - mineral technologist: PONV - mineral technologist Female Yes 11/27/23 12:44 HX of Motion Sickness No 11/27/23 12:44 HX of N/V After Surgery Yes 11/27/23 12:44 Non-Smoker Yes 11/27/23 12:44 Duration of Surgery greater No 11/27/23 12:44 than 60 minutes Number of Risk Factors 3 11/27/23 12:44 PONV Score Moderate Risk 11/27/23 12:44 Height & Weight Height & Weight: Anesthesia: Height & Weight Height 5 ft 3 in 01/21/23 15:57 Respiratory Assessment Respiratory Assessment - mineral technologist: Respiratory Tract Infection Hx - mineral technologist Hx Respiratory Tract Infection No 11/27/23 12:44 STOP Sleep Apnea STOP Sleep Apnea - mineral technologist: STOP Sleep Apnea - mineral technologist Hx Hypertension No 11/27/23 12:44 Hx Sleep Apnea No 11/27/23 12:44 CPAP BIPAP Do you snore loudly (louder No 11/27/23 12:44 than talking or can be heard Do you often feel tired/ No 11/27/23 12:44 fatigued/ sleepy during daytime? Has anyone observed you stop No 11/27/23 12:44 breathing during sleep? STOP Results Negative 11/27/23 12:44 QUESTION #5 FULL TEXT : Do you snore loudly (louder than talking or can be heard through closed doors)? 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 Specify any problems Hx of Preganancy in last 3 N/A 11/27/23 12:44 Months Nurse Filling Out Transfusion NBUCHER 11/27/23 12:44 & Questions: Date: 11/27/23 11/27/23 12:44 Time: 12:45 11/27/23 12:44 Patient unable to answer at this time (ie. confused, unrespo /Reproduction History /Reproductive History - mineral technologist: /Reproductive Hx- mineral technologist Hx Now No 11/27/23 12:44 Gestational Age (in weeks): EDC: Hx Hx Para Hx Section SAB No 11/27/23 12:44 [facility] Medical History PONV (postoperative nausea and vomiting) Post-menopausal Depression Anxiety Migraine headache Ulcerative colitis History of IBS Gastric reflux Non-smoker History of stress test Vitamin D deficiency Hyperlipemia Anxiety and depression Migraine Insomnia Sleep disorder Carpal tunnel syndrome GERD without esophagitis IBS (irritable bowel syndrome) Neck pain Plantar fasciitis Endometriosis DVT (deep venous thrombosis) Ulcerative colitis Home Medications ?Medication ?Instructions ?Recorded ?Last Taken ?Type bupropion HCl 150 mg 24 hr tablet, 150 mg PO QAM 01/16/22 Unknown History extended release (Wellbutrin XL) eletriptan 20 mg tablet (Relpax) 40 mg PO .X1 PRN 01/16/22 Unknown History escitalopram oxalate 5 mg tablet 10 mg PO DAILY 01/16/22 Unknown History (Lexapro) valacyclovir 1 gram tablet 1,000 mg PO BID PRN Cold Sores 01/16/22 Unknown History (Valtrex) omalizumab 150 mg subcutaneous 300 mg subcut .[id number] CHRONIC 04/04/22 Unknown History solution (Xolair) HIVES Lactobacillus acidophilus 10 10,000 mmu cells PO DAILY 07/12/22 Unknown History billion cell capsule (Probiotic) omeprazole 20 mg capsule,delayed 20 mg PO DAILY 08/23/22 Unknown History release budesonide 3 mg 9 mg (3 x 3 mg) PO DAILY #90 ea 10/21/23 Unknown Rx capsule,delayed,extended release zolpidem 12.5 mg tablet,extended 12.5 mg PO QHS 11/27/23 Unknown History release,multiphase dicyclomine 10 mg capsule 10 mg PO TID #90 caps 11/28/23 Unknown Rx Allergy/AdvReac Type Severity Reaction Status Date / Time codeine Allergy Hives Verified 11/27/23 12:41 Penicillins (PCN) Allergy Hives Verified 11/27/23 12:41 Family History Father Colon cancer Myocardial infarction Grandfather Myocardial infarction Mother Hypertension Rheumatic heart disease Other Heart disease Surgical History History of cardiac catheterization Hx of surgical procedure Hx of arthroscopy of right knee Status post breast reduction H/O arthroscopy of left knee Social History household members: spouse current occupational status: employed 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
--- NOTE | 2023-12-24 13:51 | HP.PCM_ITS ---
History and Physical Date of Admission: 12/24/23 JAVON GUEVARA, is a 52 F who presents to the office today for PCP OV noting history of IBS and UC. Previously established with Dr. Luna who started Lialda with last colonoscopy 2016. ? EGD 09.11.19 Dr. Luna without visual abnormality. ? Colonoscopy 07.12.20 without visual abnormality. No pathologic changes. *I established 04.04.22 for management of UC (diagnosed age 17)/IBS. Lialda recently stopped at no symptom change. Notes flares of symptoms once a month lasting several days with bloating and pain with generally increased abdominal and rectal pain in the last several months. ? Biochemical CBC, ESR, CMP, LFT, LDH, CRP, GAME, ZACHARIAH, ANCA, STU comp, celiac without pertinent abnormality. ? Stool calprotectin, lactoferrin WNL. ? Colonoscopy 07.17.22 congested hepatic flexure; diverticulosis; distal and TI with patchy area and congestion. No path changes. OV 08.23.22 mesalamine has been stopped. Recently started semaglutide for weight loss by PCP. She has been having heartburn (omeprazole restarted by PCP and helpful). OV 01.21.23 she was doing well until the last week; she has been having constipation (bloating and lack of BM for several days) alternating with loose stools. She does pay particular attention to her diet. Semaglutide continues but feels she has plateaued with weight loss. ROS Const Constitutional: Positive for fatigue; No fever(s), frequent falls, headache(s) or weight change ENT ENT: No headache(s) or difficulty swallowing Cardio Cardiology: No leg pain with exertion Gastro GI: Positive for abdominal pain, bloating, change in bowel habits, constipation, diarrhea, heartburn and nausea/dyspepsia; No difficulty swallowing, Vomiting blood/hematemesis, Blood in stool or vomiting Musc Musculoskeletal: Positive for restless legs; No abnormal gait, joint pain, back pain, joint swelling, muscle cramps, muscle weakness, numbness, stiffness, tingling, Arthritis, sciatica, leg pain at night or leg pain with exertion Skin Skin: No dry skin, lesions, itchy eyes or rash Neuro Neurology: Positive for restless legs; No abnormal gait, dizziness, frequent falls, headache(s), numbness, tingling, tremor(s), Increased tone in limbs, paralysis or seizures Psych Psychiatric: No anxiety, No depression, No paranoia, No Behavioral Problems, No Compulsive Behavior, No hyperactivity, No inattentiveness, No obsessions/compulsions, No Temper Tantrums and No suicidal ideation Endo Endocrine: Positive for fatigue; No weight change Aller/Imm Allergy/Immunologic: No itchy eyes Moose/Lymp Hematologic/Lymphatic: No easy bleeding or easy bruising Exam Const General: cooperative and comfortable Nutritional Appearance: obese Orientation: alert, awake and oriented x3 HENMT Head: normal to inspection Eyes Sclera: sclerae normal Neck Neck: normal visual inspection Resp Effort & Inspection: normal respiratory effort Skin General: no rashes or lesions noted Neuro Gait: normal gait Psych Mood: congruent mood Quality Reporting Tobacco Screening ([facility] 138) Smoking Status: Never smoker Assessment and Plan Assessment and Plan (1) Ulcerative colitis: Status: Chronic Qualifiers: Digestive disease complication type: without complication Ulcerative colitis location: unspecified ulcerative colitis location Qualified Code(s): K51.90 - Ulcerative colitis, unspecified, without complications Plan: 52 yr old female with ulcerative colitis, most recently treated with Lialda which she stopped due to perceived lack of efficacy, who is interested in establishing with Labs to eval for inflammation, other autoimmune, celiac were all within normal limits. Colonoscopy did not show any acute or chronic inflammation on random biopsies of the colon. There was also no inflammation seen in the terminal ileum. She is having some intermittent diarrhea but it is mostly associated with her new weight loss medicine. She does not have any tenesmus, bleeding or any other change in bowel habits. We discussed possibly put her on VSL #3 for maintenance of ulcerative colitis. However I am electing not to put her on anything right now because she seems to be in clinical remission. (2) Irritable bowel syndrome: Status: Chronic Qualifiers: Irritable bowel syndrome type: unspecified Qualified Code(s): K58.9 - Irritable bowel syndrome without diarrhea0 I have examined the patient and the H&P has been reviewed. There are no clinical changes since date of exam.
--- NOTE | 2023-12-24 14:27 | PCM.POST.ANE ---
Anesthesia: Postop Eval I Current Vital Signs Temperature: 97.7 F Pulse Rate: 88 Blood Pressure: 126/78 Respiratory Rate: 16 Pulse Ox: 98 Oxygen Delivery Method: Room Air Assessment Airway patent: Yes Spontaneous unlabored respirations: Yes Mental status: Asleep nausea: No Vomiting: No Anesthesia Complication: No Fluid Hydration Crystalloid volume administer (ml): 40 Total IV fluid infused: 40 Progress Note Anesthesia document: Postop Eval 1 completed: Yes
--- NOTE | 2023-12-24 14:28 | OP.CCLET_ITS ---
12/24/2023 Charo Hooper Re : Colonoscopy procedure for Stella Herr Dear Sandie This procedure was performed on Sunday, December 24, 2023. My impressions and recommendations are as follows: Impressions : - Preparation of the colon was fair. - Congested mucosa in the rectum, in the sigmoid colon and in the cecum. Biopsied. - Stool in the recto-sigmoid colon, in the sigmoid colon, in the descending colon, in the ascending colon and in the cecum. - Diverticulosis in the recto-sigmoid colon and in the sigmoid colon. - Congested mucosa in the terminal ileum. Biopsied. Recommendations : - Discharge patient to home. - Resume previous diet. - Continue present medications. - Await pathology results. - Repeat colonoscopy at appointment to be scheduled for surveillance based on pathology results. My findings are described in the full procedure note, which is enclosed. If I can be of further assistance, please feel free to contact me at . Sincerely, Anthony Coelho, 12/24/2023 2:27:22 PM This report has been signed electronically.
--- NOTE | 2023-12-24 14:28 | OP.COLON_ITS ---
Patient Name: Stella Herr Procedure Date: 12/24/2023 1:59 PM Date of : 1970 Age: 53 Procedure: Colonoscopy Indications: Hematochezia, Chronic ulcerative proctosigmoiditis Providers: Anthony Coelho DO Medicines: Monitored Anesthesia Care Patient Profile: This is a 53 year old female. Refer to note in patient chart for documentation of history and physical. Last Colonoscopy: within the past 3 years. Complications: No immediate complications. Procedure: Pre-Anesthesia Assessment: - Prior to the procedure, a History and Physical was performed, and patient medications and allergies were reviewed. The patient is competent. The risks and benefits of the procedure and the sedation options and risks were discussed with the patient. All questions were answered and informed consent was obtained. Patient identification and proposed procedure were verified by the physician in the pre-procedure area. Mental Status Examination: alert and oriented. Airway Examination: normal oropharyngeal airway and neck mobility. Respiratory Examination: clear to auscultation. CV Examination: normal. Prophylactic Antibiotics: The patient does not require prophylactic antibiotics. Prior Anticoagulants: The patient has taken no anticoagulant or antiplatelet agents except for NSAID medication. ASA Grade Assessment: II - A patient with mild systemic disease. After reviewing the risks and benefits, the patient was deemed in satisfactory condition to undergo the procedure. The anesthesia plan was to use monitored anesthesia care (MAC). Immediately prior to administration of medications, the patient was re-assessed for adequacy to receive sedatives. The heart rate, respiratory rate, oxygen saturations, blood pressure, adequacy of pulmonary ventilation, and response to care were monitored throughout the procedure. The physical status of the patient was re-assessed after the procedure. After I obtained informed consent, the scope was passed under direct vision. Throughout the procedure, the patient's blood pressure, pulse, and oxygen saturations were monitored continuously. The Colonoscope was introduced through the anus and advanced to the terminal ileum. The colonoscopy was performed without difficulty. The patient tolerated the procedure well. The quality of the bowel preparation was fair. The terminal ileum, ileocecal valve, appendiceal orifice, and rectum were photographed. Scope In: 2:07:42 PM Scope Withdrawal Time 0 hours 8 minutes 35 seconds Scope Out: 2:20:11 PM Total Procedure Duration Time 0 hours 12 minutes 29 seconds Findings: The perianal and digital rectal examinations were normal. An area of mildly congested mucosa was found in the rectum, in the sigmoid colon and in the cecum. Biopsies were taken with a cold forceps for histology. Verification of patient identification for the specimen was done. Estimated blood loss was minimal. Stool was found in the recto-sigmoid colon, in the sigmoid colon, in the descending colon, in the ascending colon and in the cecum. Multiple small and large-mouthed diverticula were found in the recto-sigmoid colon and sigmoid colon. A patchy area of the terminal ileum was congested. Biopsies were taken with a cold forceps for histology. Verification of patient identification for the specimen was done. Estimated blood loss was minimal. Impression: - Preparation of the colon was fair. - Congested mucosa in the rectum, in the sigmoid colon and in the cecum. Biopsied. - Stool in the recto-sigmoid colon, in the sigmoid colon, in the descending colon, in the ascending colon and in the cecum. - Diverticulosis in the recto-sigmoid colon and in the sigmoid colon. - Congested mucosa in the terminal ileum. Biopsied. Recommendation: - Discharge patient to home. - Resume previous diet. - Continue present medications. - Await pathology results. - Repeat colonoscopy at appointment to be scheduled for surveillance based on pathology results. Procedure Code(s): --- Professional --- 52301, Colonoscopy, flexible; with biopsy, single or multiple CPT copyright 2021 [employer]. All rights reserved. The codes documented in this report are preliminary and upon children's literature professor review may be revised to meet current compliance requirements. Anthony Coelho DO 12/24/2023 2:27:22 PM This report has been signed electronically. Number of Addenda: 0 Note Initiated On: 12/24/2023 1:59 PM
--- NOTE | 2023-12-24 14:37 | PCM.POSTANE2 ---
Anesthesia Postop Eval I Sum Postop Eval Completion status Anesthesia document: Postop Eval 1 completed: Yes Anesthesia Postop Eval I Summary Anesthesia Postop Eval I Summary: Anesthesia Postop Eval I: Assessment Summary Airway patent Yes 12/24/23 14:28 [email or web address] Spontaneous unlabored Yes 12/24/23 14:28 [email or web address] respirations Mental status Asleep 12/24/23 14:28 [email or web address] nausea No 12/24/23 14:28 [email or web address] Vomiting No 12/24/23 14:28 [email or web address] Anesthesia Postop Eval I: Fluid Summary Crystalloid volume administer 40 12/24/23 14:28 [email or web address] (ml) Colloids volume administered ( ml) Blood Product volume administered (ml) Total IV fluid infused 40 12/24/23 14:28 [email or web address] Anesthesia Postop Eval I: Summary Notes Anesthesia Complication No 12/24/23 14:28 [email or web address] Anesthesia Complication Comment: Post-operative progress note Anesthesia: Postop Eval II Evaluation Mental status: Awake Pain Level: 0 nausea: No Vomiting: No
== END 2023-12-24 15:16 | disposition home or self-care (01) ==
LOC: EN 12:54 → AC 13:00
PROVIDERS: PCP Internal Medicine; Referring Provider Internal Medicine; Visit Provider Internal Medicine Gastroenterology
PROC: 0DJD8ZZ Inspection of Lower Intestinal Tract, Via Natural or Artificial Opening Endoscopic (ICD-10-PCS; CPT 45378; principal; 2023-12-24 13:55)
DX: K51.90 Ulcerative colitis, unspecified, without complications (principal); K63.89 Other specified diseases of intestine; K57.30 Diverticulosis of large intestine without perforation or abscess without bleeding; E66.9 Obesity, unspecified; Z79.899 Other long term (current) drug therapy; Z86.718 Personal history of other venous thrombosis and embolism
CPT/HCPCS: 45380; 88305; A4216; J2405

== ENCOUNTER 2024-06-23 07:26 | Observation (INO) | payer OTHER, SELFPAY ==
[2024-06-23] VITALS (23 sets, daily range): BP systolic 141–178; BP diastolic 80–96; PULSE 54–85; RESP 14–23; TEMP 35.9–37.2; O2SAT 92–100; BMI 34.4; BMI 35.4
--- NOTE | 2024-06-23 07:42 | EDS_ITS ---
HPI HPI - GI History of Present Illness Chief Complaint: Abd Pain Informant: patient and family Narrative Narrative: 54-year-old female presenting to the emergency room with abdominal pain and nausea. Patient states that around 0330 hrs. she developed the pain in the right upper quadrant of her abdomen. She states that is now radiating to the back and is progressively worsened. She notes associated nausea but no vomiting. She states she had 2 bowel movements this morning. She feels bloated. She has a history of IBS and ulcerative colitis (follows with Dr. Friend) patient denies any prior abdominal surgeries. She ate dinner around 1900 hrs. She had black coffee around 0500 hrs. which did not change symptoms. She denies any lower extremity symptoms. No radiation of pain to the right shoulder. Patient notes low-grade temperatures. She states that she has had 2 prior episodes similar to this with pain but not to this extent not with the nausea. [facility] Medical History PONV (postoperative nausea and vomiting) Post-menopausal Depression Anxiety Migraine headache Ulcerative colitis History of IBS Gastric reflux Non-smoker History of stress test Vitamin D deficiency Hyperlipemia Anxiety and depression Migraine Insomnia Sleep disorder Carpal tunnel syndrome GERD without esophagitis IBS (irritable bowel syndrome) Neck pain Plantar fasciitis Endometriosis DVT (deep venous thrombosis) Ulcerative colitis Home Medications ?Medication ?Instructions ?Recorded ?Last Taken ?Type bupropion HCl 150 mg 24 hr tablet, 150 mg PO QAM 01/1606/22/24 History extended release (Wellbutrin XL) omalizumab 150 mg subcutaneous 300 mg subcut .COMPLEX CHRONIC 04/04/22 Unknown History solution (Xolair) HIVES Lactobacillus acidophilus 10 10,000 mmu cells PO DAILY 07/12/22 12/23/23 History billion cell capsule (Probiotic) eletriptan 40 mg tablet 40 mg PO DAILY PRN headache 06/23/24 Unknown History escitalopram oxalate 10 mg tablet 10 mg PO DAILY 06/2306/22/24 History omeprazole 20 mg capsule,delayed 20 mg PO DAILY Unknown History release zolpidem 12.5 mg tablet,extended 12.5 mg PO QHS PRN in somnia 06/23/24 Unknown History release,multiphase Allergy/AdvReac Type Severity Reaction Status Date / Time codeine Allergy Hives Verified 06/23/24 07:26 Penicillins (PCN) Allergy Hives Verified 06/23/24 07:26 Family History Father Colon cancer Myocardial infarction Grandfather Myocardial infarction Mother Hypertension Rheumatic heart disease Other Heart disease Surgical History History of cardiac catheterization Hx of surgical procedure Hx of arthroscopy of right knee Status post breast reduction H/O arthroscopy of left knee Social History household members: spouse current occupational status: employed 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 Smoking Status: Never smoker alcohol intake: current alcohol intake frequency: holidays/special occasions only substance use type: does not use caffeine: No what type of physical activity do you participate in: walking and weight training frequency: daily amberly/hinduism: Synagogue ROS ROS ED Constitutional Constitutional ED: Denies chills, fever(s) or weight loss Eyes Eyes: Denies change in vision or diplopia ENT ENT ED: Denies ear pain, rhinorrhea or sore throat Cardiovascular Cardiovascular: Denies chest pain, orthopnea, palpitations or racing heartbeat Respiratory/Chest Respiratory/Chest: Denies cough, dyspnea or orthopnea Gastrointestinal Gastrointestinal: Reports abdominal pain and nausea; Denies constipation or vomiting Genitourinary Genitourinary ED: Denies dysuria, hematuria or urinary frequency Musculoskeletal Musculoskeletal: Reports back pain; Denies arthralgias or myalgias Integumentary Denies abscess or rash Neurologic Neurologic: Denies headache(s) or weakness Psychiatric Psychiatric: Denies anxiety, depression, suicidal ideation or suicidal thoughts Endocrine Endocrinology: Denies polydipsia, polyphagia or polyuria Allergic/Immunologic Allergic/Immunologic ED: Denies mouth swelling, tongue swelling or urticaria EXAM Physical Exam Narrative Exam Narrative: Patient writhing in the bed appears nauseated holding emesis bag Const Vital Signs: 06/23/24 07:26 06/23/24 08:36 06/23/24 09:06 Temperature 99 F Temperature Source Temporal Pulse Rate 79 72 54 L Respiratory Rate 16 23 H 18 Blood Pressure 163/91 H 147/86 H Blood Pressure Mean 115 106 Blood Pressure Source Blood Pressure Position Blood Pressure Location Pulse Ox 98 98 98 Oxygen Delivery Method Room Air 06/23/24 10:18 06/23/24 11:05 06/23/24 11:24 Temperature 98 F Temperature Source Temporal Pulse Rate 82 63 Respiratory Rate 14 Blood Pressure 143/89 H 155/88 H 162/92 H Blood Pressure Mean 107 110 115 Blood Pressure Source Monitor Blood Pressure Position Semi-Fowlers Blood Pressure Location Right Arm Pulse Ox 98 Oxygen Delivery Method Room Air 06/23/24 12:00 Temperature Temperature Source Pulse Rate 77 Respiratory Rate 14 Blood Pressure 178/96 H Blood Pressure Mean 123 Blood Pressure Source Blood Pressure Position Blood Pressure Location Pulse Ox 97 Oxygen Delivery Method Room Air Positive well nourished and well developed General Appearance ED: well developed HEENT Reports normocephalic, head/scalp atraumatic and moist mucous membranes Eyes PERRL and EOMs intact bilaterally Neck no lymphadenopathy, supple and no JVD Resp normal respiratory effort and clear to auscultation bilaterally Cardio regular rate, regular rhythm and no murmurs GI GI Narrative: The abdomen is soft Auscultation: normoactive bowel sounds Palpation: soft and tender epigastric and RUQ; Negative for rigid or rebound tenderness present Back/Spine no CVA tenderness and normal ROM Extremity normal to inspection General Extremety ED: Negative for edema General Extremity: Negative for edema Neuro oriented x3 and CN's II-XII intact bilaterally Sensorium / Orientation: alert Motor Exam: strength 5/5 throughout Psych mental status grossly normal Mood & Affect: Negative for depressed or tearful Skin no rashes or lesions noted and no wounds MDM MDM MDM Narrative Medical decision making narrative: Differential diagnosis includes. Urinary colic kidney stones UTI colitis bowel obstruction perforated viscus pancreatitis choledocholithiasis GERD/gastric ulcer Patient received Dilaudid Zofran and IV fluids. Her pain and nausea are significantly improved. Patient's white count is 9.2 hemoglobin 13.3 platelet count is 233. BMP with a creatinine 0.78 normal sodium potassium glucose noted to be 115. Normal LFTs and lipase. Her serum test came back positive but the hCG quant is 7. Patient was encouraged to follow-up with gynecology for this. Urinalysis showed no obvious infection. Gallbladder ultrasound demonstrates cholelithiasis and a thickened gallbladder wall. No pericholecystic fluid was noted. Case was discussed with on-call surgery Dr. Issa to who is come to the emergency department to evaluate the patient. Surgery will admit for cholecystectomy. We will give Cipro and Flagyl as she has a penicillin allergy. History & Record Review Discussion w/independent historian: Patient and Significant other Lab Data Attestation: I reviewed the patient's lab results. Labs: Laboratory Results - last 24 hr 06/23/24 07:44 WBC 9.2 RBC 4.22 Hgb 13.3 Hct 37.5 MCV 88.9 MCH 31.5 MCHC 35.5 RDW Std Deviation 38.1 RDW Coeff of [place] 12.0 Plt Count 233 MPV 10.1 Immature Gran % (Auto) 0.200 Neut % (Auto) 65.8 Lymph % (Auto) 25.9 [place] % (Auto) 6.6 Eos % (Auto) 1.1 Baso % (Auto) 0.4 Absolute Neuts (auto) 6.0 Absolute Lymphs (auto) 2.37 Nucleated RBC % 0 Sodium 141 Potassium 3.8 Chloride 106 Carbon Dioxide 22.8 Anion Gap 12 BUN 19 Creatinine 0.78 Estim Creat Clear Calc 100.07 Est GFR (MDRD) Non-Af 90 BUN/Creatinine Ratio 23.6 H Glucose 115 H Calcium 10.1 Total Bilirubin 0.34 Direct Bilirubin 0.14 AST 21 ALT 19 Alkaline Phosphatase 99 Total Protein 7.2 Albumin 4.3 Globulin 2.9 Lipase 33 HCG, Quant 7 Serum , Qual POSITIVE Urine Color Yellow Urine Clarity Clear Urine pH 7.0 Ur Specific [place] 1.015 Urine Protein 15 H Urine Glucose (UA) Normal Urine Ketones Negative Urine Occult Blood Negative Urine Nitrite Negative Urine Bilirubin Negative Urine Urobilinogen Normal Ur Leukocyte Esterase 25 H Urine RBC 0-5 SEEN Urine WBC 0-5 SEEN Ur Squamous Epith Cells 0-5 SEEN Urine Bacteria 1+ Urine Mucus 0 SEEN Radiography Diagnostic Testing: Clinical Impression(s) from Imaging Studies Abdomen Ultrasound 06/23/24 09:13 IMPRESSION: 1. Cholelithiasis including a stone in the gallbladder neck, with findings equivocal for acute cholecystitis including mild wall thickening, however notably without visualized pericholecystic fluid and with a reported negative sonographic Torres's sign which should be confirmed by clinician exam. Alternative etiologies for gallbladder wall thickening include third-spacing, altered hemodynamics/venous congestion, or reactive to a primarily hepatic process. Correlate with presentation. If there is persistent clinical ambiguity, consider HIDA. Top-normal caliber of the CBD. 2. Borderline evidence of hepatic steatosis. Correlate with clinical and laboratory evidence of chronic liver disease. 3. Additional description as above. Reading Location: [facility] EK Initial EKG: Attestation: I personally reviewed and interpreted this EKG as follows: Comments: Sinus bradycardia ventricular rate 51 bpm Management Discussion w/another healthcare provider: [employer] Install[employer] (Dr Dykes (Surgery)) Discharge Plan Triage Chief Complaint: Abd Pain ED Provider: Chencho Cespedes Dx/Rx/DC Orders Clinical Impression: Abdominal pain, Nausea, Cholelithiasis Primary Care Provider: Charo Hooper
[2024-06-23] MEDS: Ondansetron 4 MG/2 ML Vial IV (07:46)
[2024-06-23] MEDS: 0.9% Normal Saline (1000mL) 1,000 ML 999 ML IV (07:46)
[2024-06-23] MEDS: HYDROmorphone 1 MG/ML Syringe IV (07:47)
[2024-06-23 07:51] LABS: Mucous, Urine 0 SEEN /hpf (<or=2+)
[2024-06-23 07:56] LABS: Absolute Lymphocyte Count 2.37 X10^3/uL (0.83-4.51); Basophil# 0.04 X10^3/uL; Basophil% 0.4 % (0-1); Color, Urine Yellow (Yellow); Eosinophils% 1.1 % (0-5); Glucose, Dipstick Normal (Normal); Hematocrit 37.5 % (37-47); Hemoglobin 13.3 g/dL (12.0-15.0); Ketone-Dipstick Negative (Negative); Leukocyte Esterase-Dipstick 25 /ul (Negative); Lymphocyte # 2.37 X10^3/ul (0.83-4.51); Lymphocyte % 25.9 % (19-41); Mean Corp Hgb Conc 35.5 g/dL (32-36); Mean Corpuscular Hgb 31.5 pg (27.0-32.0); Mean Corpuscular Volume 88.9 fL (81-99); Mean Platelet Vol. 10.1 fl (6.2-12.0); Monocyte% 6.6 % (0-10); NRBC Flagged by Analyzer 0 % (0-5); Neutrophil # 6.02 X10^3/uL (2.7-7.7); Neutrophil % 65.8 % (47-70); Nitrite-Dipstick Negative (Negative); Occult Blood-Urine Negative /ul (Negative); Platelet Count 233 K/mm3 (150-450); Protein-Dipstick 15 mg/dl (Negative); RBC Distribution Width SD 38.1 fl (35.1-43.9); Red Blood Count 4.22 M/mm3 (4.2-5.4); Specific Gravity, Urine 1.015 (1.002-1.030); Urine Bilirubin Dipstick Negative (Negative); Urine Clarity Clear (Clear); Urine Urobilinogen Normal (Normal); White Blood Count 9.2 K/mm3 (4.4-11.0)
[2024-06-23 08:07] LABS: Red Blood Cells-Urine 0-5 SEEN /hpf (0-5); Squamous Epithelial Cells - UA 0-5 SEEN /hpf (5-10); White Blood Cells 0-5 SEEN /hpf (0-5)
[2024-06-23 08:08] LABS: Bacteria 1+ /hpf (None Seen)
[2024-06-23 08:10] LABS: Internal QC Validated? YES +Cl - CLEAR BKGD; Pregnancy, Serum, hCG Quali. POSITIVE Negative
[2024-06-23 08:19] LABS: AST(SGOT) 21 U/L (<=31); Alanine Aminotransfer ALT/SGPT 19 U/L (<=34); Albumin, Serum 4.3 g/dL (3.5-5.0); Alkaline Phosphatase 99 U/L (35-104); Anion Gap 12 (5-15); BUN 19 mg/dL (4-19); BUN/Creat Ratio 23.6 RATIO (10-20); Bilirubin, Direct 0.14 mg/dL (0.00-0.30); Calcium,Total 10.1 mg/dL (7.6-11.0); Carbon Dioxide 22.8 mmol/L (21.0-32.0); Chloride 106 mmol/L (98-108); Creatinine, Serum 0.78 mg/dL (0.70-1.20); EST Glomerular Filtration Rate 90 (>60); Estimated Creatinine Clearance 100.07 ml/min (50-250); Globulin 2.9 g/dL (2.2-4.2); Glucose 115 mg/dL (70-99); Lipase 33 U/L (13-75); Potassium 3.8 mmol/L (3.3-5.1); Protein, Total 7.2 g/dL (5.9-8.4); Sodium Level 141 mmol/L (133-145); Total Bilirubin 0.34 mg/dL (0.00-1.30)
[2024-06-23 09:11] LABS: hCG Titer Quant., Serum 7 mIU/mL (<9 non-preg)
--- NOTE | 2024-06-23 09:13 | US_ITS ---
PROCEDURE: ABDOMEN LIMITED (USABDL), 06/23/2024 REASON FOR EXAM: PAIN COMPARISON: None FINDINGS: Liver: Borderline slightly echogenic. 17.4 cm in length. Gallbladder: Physiologically distended with layering sludge and a stone near the gallbladder neck. Wall thickness in the range of 5 mm when measured tangentially. No visualized pericholecystic fluid. Reportedly, sonographic Torres's was negative. Biliary tree: CBD at the upper limits of normal, 6-7 mm. Pancreas: Partially obscured by shadowing bowel gas, grossly unremarkable as visualized. Right kidney: Unremarkable. 12.5 cm in length. Other: No visualized free fluid. US/Abdomen Limited IMPRESSION: 1. Cholelithiasis including a stone in the gallbladder neck, with findings equi vocal for acute cholecystitis including mild wall thickening, however notably without visualized pericholecystic fluid and with a reported negative sonographic Torres's sign which should be confirmed by clinician exam. Alternative etiologies for gallbladder wall thickening include third-spacing, altered hemodynamics/venous congestion, or reactive to a primarily hepatic process. Co rrelate with presentation. If there is persistent clinical ambiguity, consider HIDA. Top-normal caliber of the CBD. 2. Borderline evidence of hepatic steatosis. Correlate with clinical and labor atory evidence of chronic liver disease. 3. Additional description as above. Reading Location: [id number]
[2024-06-23] MEDS: HYDROmorphone 0.5 MG/0.5 ML SYRINGE IV (11:23)
--- NOTE | 2024-06-23 11:51 | PCM.HP.STD ---
HPI - General HPI Narrative JAVON GUEVARA, is a 54 F who presents with right upper quadrant pain that awoke her from sleep. She says she has had 2 episodes in the last 6 months of right upper quadrant pain. She said they were different than this episode. She said the last 2 episodes were only pain but this episode she had nausea and vomiting and chills with pain in the right upper quadrant. PFSH Medical History PONV (postoperative nausea and vomiting) Post-menopausal Depression Anxiety Migraine headache Ulcerative colitis History of IBS Gastric reflux Non-smoker History of stress test Vitamin D deficiency Hyperlipemia Anxiety and depression Migraine Insomnia Sleep disorder Carpal tunnel syndrome GERD without esophagitis IBS (irritable bowel syndrome) Neck pain Plantar fasciitis Endometriosis DVT (deep venous thrombosis) Ulcerative colitis Home Medications ?Medication ?Instructions ?Recorded ?Last Taken ?Type bupropion HCl 150 mg 24 hr tablet, 150 mg PO QAM 01/16/22 06/22/24 History extended release (Wellbutrin XL) omalizumab 150 mg subcutaneous 300 mg subcut .COMPLEX CHRONIC 04/04/22 Unknown History solution (Xolair) HIVES Lactobacillus acidophilus 10 10,000 mmu cells PO DAILY 07/12/22 12/23/23 History billion cell capsule (Probiotic) eletriptan 40 mg tablet 40 mg PO DAILY PRN headache 06/23/24 Unknown History escitalopram oxalate 10 mg tablet 10 mg PO DAILY 06/23/24 06/22/24 History omeprazole 20 mg capsule,delayed 20 mg PO DAILY 06/23/24 Unknown History release zolpidem 12.5 mg tablet,extended 12.5 mg PO QHS PRN insomnia 06/23/24 Unknown History release,multiphase Allergy/AdvReac Type Severity Reaction Status Date / Time codeine Allergy Hives Verified 06/23/24 07:26 Penicillins (PCN) Allergy Hives Verified 06/23/24 07:26 Family History Father Colon cancer Myocardial infarction Grandfather Myocardial infarction Mother Hypertension Rheumatic heart disease Other Heart disease Surgical History History of cardiac catheterization Hx of surgical procedure Hx of arthroscopy of right knee Status post breast reduction H/O arthroscopy of left knee Social History household members: spouse current occupational status: employed 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 Smoking Status: Never smoker alcohol intake: current alcohol intake frequency: holidays/special occasions only substance use type: does not use caffeine: No what type of physical activity do you participate in: walking and weight training frequency: daily ambrely/bahai: Episcopalian ROS Constitutional Constitutional: Reports chills Eyes Eyes: Denies blurry vision ENT HEENT: Denies abnormal hearing Cardiovascular Cardiovascular: Denies chest pain Respiratory/Chest Respiratory/Chest: Denies cough or dyspnea Gastrointestinal Gastrointestinal: Reports abdominal pain, nausea and vomiting; Denies diarrhea Genitourinary Genitourinary: Denies change in urinary stream Musculoskeletal Musculoskeletal: Denies abnormal gait Integumentary Integumentary: Denies jaundice or new lesions Neurologic Neurologic: Denies abnormal gait Psychiatric Psychiatric: Denies anxiety Endocrine Endocrinology: Denies flushing Vital Signs Vital Signs Vital Signs: 06/23/24 07:26 06/23/24 08:36 06/23/24 09:06 Temperature 99 F Temperature Source Temporal Pulse Rate 79 72 54 L Respiratory Rate 16 23 H 18 Blood Pressure 163/91 H 147/86 H Blood Pressure Mean 115 106 Blood Pressure Source Blood Pressure Position Blood Pressure Location Pulse Ox 98 98 98 Oxygen Delivery Method Room Air 06/23/24 10:18 06/23/24 11:05 06/23/24 11:24 Temperature 98 F Temperature Source Temporal Pulse Rate 82 63 Respiratory Rate 14 Blood Pressure 143/89 H 155/88 H 162/92 H Blood Pressure Mean 107 110 115 Blood Pressure Source Monitor Blood Pressure Position Semi-Fowlers Blood Pressure Location Right Arm Pulse Ox 98 Oxygen Delivery Method Room Air Weight Weight: 220 lb 0.341 oz Body Mass Index (BMI) 34.4 Physical Exam Const oriented x3 and no apparent distress Resp normal respiratory effort Cardio regular rate and regular rhythm GI soft to palpation Palpation: tender RUQ Results Lab / Micro Data 06/23/24 07:44 06/23/24 07:44 Labs: Laboratory Results - last 24 hr 06/23/24 07:44: WBC 9.2, RBC 4.22, Hgb 13.3, Hct 37.5, MCV 88.9, MCH 31.5, MCHC 35.5, RDW Std Deviation 38.1, RDW Coeff of [place] 12.0, Plt Count 233, MPV 10.1, Immature Gran % (Auto) 0.200, Neut % (Auto) 65.8, Lymph % (Auto) 25.9, [place] % (Auto) 6.6, Eos % (Auto) 1.1, Baso % (Auto) 0.4, Absolute Neuts (auto) 6.0, Absolute Lymphs (auto) 2.37, Nucleated RBC % 0, Sodium 141, Potassium 3.8, Chloride 106, Carbon Dioxide 22.8, Anion Gap 12, BUN 19, Creatinine 0.78, Estim Creat Clear Calc 100.07, Est GFR (MDRD) Non-Af 90, BUN/Creatinine Ratio 23.6 H, Glucose 115 H, Calcium 10.1, Total Bilirubin 0.34, Direct Bilirubin 0.14, AST 21, ALT 19, Alkaline Phosphatase 99, Total Protein 7.2, Albumin 4.3, Globulin 2.9, Lipase 33, HCG, Quant 7, Serum , Qual POSITIVE, Urine Color Yellow, Urine Clarity Clear, Urine pH 7.0, Ur Specific [place] 1.015, Urine Protein 15 H, Urine Glucose (UA) Normal, Urine Ketones Negative, Urine Occult Blood Negative, Urine Nitrite Negative, Urine Bilirubin Negative, Urine Urobilinogen Normal, Ur Leukocyte Esterase 25 H, Urine RBC 0-5 SEEN, Urine WBC 0-5 SEEN, Ur Squamous Epith Cells 0-5 SEEN, Urine Bacteria 1+, Urine Mucus 0 SEEN Imaging Radiology Impression Abdomen Ultrasound 06/23/24 09:13 IMPRESSION: 1. Cholelithiasis including a stone in the gallbladder neck, with findings equivocal for acute cholecystitis including mild wall thickening, however notably without visualized pericholecystic fluid and with a reported negative sonographic Torres's sign which should be confirmed by clinician exam. Alternative etiologies for gallbladder wall thickening include third-spacing, altered hemodynamics/venous congestion, or reactive to a primarily hepatic process. Correlate with presentation. If there is persistent clinical ambiguity, consider HIDA. Top-normal caliber of the CBD. 2. Borderline evidence of hepatic steatosis. Correlate with clinical and laboratory evidence of chronic liver disease. 3. Additional description as above. Reading Location: [facility] Assessment & Plan Assessment/Plan (1) Cholelithiasis: PLAN: The patient has cholelithiasis with a large stone stuck at the neck of the gallbladder. Her white count is normal but she does have thickening of the gallbladder as well. Given the fact that she had fevers and nausea and vomiting and she is still in pain I think she likely has early acute cholecystitis. I recommended laparoscopic cholecystectomy. I discussed the procedure in detail with the patient. I discussed the risks, benefits, and alternatives of the procedure. I discussed the risks including but not limited to bleeding, infection, injury to surrounding organs such as the liver, bile duct, bowels. I did discuss the possibility of having to convert to an open procedure as well as the possibility that if any injuries occurred this may necessitate further surgery at a tertiary care center. Patient will be given antibiotics in the emergency room and she will be added on for surgery this afternoon. Deni Dykes MD Pager: [facility] [address] [place] [address], [address] [place] [address] Office:
[2024-06-23] MEDS: Ciprofloxacin 400 MG/200 ML BAG 200 MG IV (12:03)
[2024-06-23] MEDS: metroNIDAZOLE 500 MG/100 ML BAG 100 MG IV (12:45)
--- NOTE | 2024-06-23 12:45 | ED.RN ---
report given to LILIA Costello in [facility]
--- NOTE | 2024-06-23 13:01 | EKG12_ITS ---
Test Reason : PRE OP Blood Pressure : */* mmHG Vent. Rate : 51 BPM Atrial Rate : 51 BPM P-R Int : 168 ms QRS Dur : 90 ms QT Int : 410 ms P-R-T Axes : 47 29 14 degrees QTcB Int : 377 ms Sinus bradycardia with sinus arrhythmia Otherwise normal ECG Confirmed by ASHOK ARGUELLES, CHAVEZ ([id number]), newspaper photo editor TREE NGUYEN ([id number]) on 06/24/2024 1:30:12 PM Referred By: Confirmed By: CHAVEZ PULIDO MD
--- NOTE | 2024-06-23 14:56 | PRE.ANES_ITS ---
ASA Classification* ASA Classification ASA Classification: 3 Assessment & Plan Anesthesia* Anesthesia Assessment Anesthesia Assessment: Discussed sedation and/or anesthesia options, risks, benefits, and alternatives with patient/parents/legal guardian/POA. Questions invited. The patient/parents/legal guardian/POA seems to understand and agrees to proceed with anesthesia plan. Reviewed the physical assessment, medical history, allergy history and patient home medications list prior to surgery/procedure/anesthetic and documented any changes. Performed airway and anesthesia risk assessments. Anesthesia Type Anesthesia Type: General History Source History Obtained from:: Patient Anesthesia Focused Assessment* Temperature: 98 F Pulse Rate: 77 Blood Pressure: 143/86 Respiratory Rate: 14 Pulse Ox: 97 Airway Assessment Mouth opens: >3 cm Mallampati Score: III Teeth Condition: Intact Focused Labs Anesthesia Preop lab: CBC WBC 9.2 K/mm3 (4.4-11.0) 06/23/24 07:44 06/23/24 RBC 4.22 M/mm3 (4.2-5.4) 06/23/24 07:44 06/23/24 Hgb 13.3 g/dL (12.0-15.0) 06/23/24 07:44 06/23/24 Hct 37.5 % (37-47) 06/23/24 07:44 06/23/24 Plt Count 233 K/mm3 (150-450) 06/23/24 07:44 06/23/24 CHEMISTRY Potassium 3.8 mmol/L (3.3-5.1) 06/23/24 07:44 06/23/24 Sodium 141 mmol/L (133-145) 06/23/24 07:44 06/23/24 BUN 19 mg/dL (4-19) 06/23/24 07:44 06/23/24 Creatinine 0.78 mg/dL (0.70-1.20) 06/23/24 07:44 06/23/24 Glucose 115 mg/dL (70-99) H 06/23/24 07:44 06/23/24 COAG PT 13.0 SECONDS (11.9-14.4) 01/03/12 11:22 2 HCG, Quant 7 mIU/mL (<9 non-preg) 06/23/24 07:44 06/23/24 Pre-Assessment Diagnosis/Proposed Procedure Planned Operative Procedure(s): Lap Nick Anesthesia History Anesthesia History - manager medical device: Anesthesia History - manager medical device Hx Hospitalization No 11/27/23 12:44 Any Problems With Anesthesia n/v 06/23/24 11:24 Cholinesterase deficiency No 11/27/23 12:44 You/Your Family Experience No 06/23/24 11:24 fever (hyperthermia) with Relationship Recent Exposure to Contagious No 12/24/23 13:23 Disease Does patient have nerve No 06/23/24 11:24 stimulator Patient instructed to have device shut off --Does patient have Pacemaker or ICD? When Was Last Pacemaker Check QUESTION #4 FULL TEXT: You/Your Family Experience fever (hyperthermia) with Anesthesia Last Oral Intake Last Oral intake: Last Oral Intake NPO since 04:00 06/23/24 11:24 Meds taken in AM with sips of water? Meds patient instructed to take am of surgery PONV PONV - manager medical device: PONV - manager medical device Female HX of Motion Sickness HX of N/V After Surgery Non-Smoker Duration of Surgery greater than 60 minutes Number of Risk Factors PONV Score Height & Weight Height & Weight: Anesthesia: Height & Weight Height 5 ft 7 in 06/23/24 11:24 Weight: 99.8 kg 06/23/24 11:24 Body Mass Index (BMI) 34.4 06/23/24 11:24 Respiratory Assessment Respiratory Assessment - manager medical device: Respiratory Tract Infection Hx - manager medical device Hx Respiratory Tract Infection No 06/23/24 11:24 STOP Sleep Apnea STOP Sleep Apnea - manager medical device: STOP Sleep Apnea - manager medical device Hx Hypertension No 06/23/24 11:24 Hx Sleep Apnea No 06/23/24 11:24 CPAP BIPAP Do you snore loudly (louder Yes 06/23/24 11:24 than talking or can be heard Do you often feel tired/ Yes 06/23/24 11:24 fatigued/ sleepy during daytime? Has anyone observed you stop Yes 06/23/24 11:24 breathing during sleep? STOP Results Positive 06/23/24 11:24 QUESTION #5 FULL TEXT : Do you snore loudly (louder than talking or can be heard through closed doors)? Tobacco Use History Tobacco Use History - manager medical device: Tobacco Use History - manager medical device Tobacco Use Smoking Status Never smoker 06/23/24 07:38 Hx Tobacco Use No 11/27/23 12:44 Years Smoking Packs Smoked per Day Smoking Cessation Date was within the last 15 years Hx Smoking Cessation Date Hx Smoking Cessation Counseling Hematologic Medial History Hematologic Hx - manager medical device: Hematologic Medical Hx - account associate Hx of Blood Transfusion Hx of Transfusion in last 3 Months Date of Last Transfusion (if within last 3 months) Ever experience any problems with transfusion(s)? Specify any problems Hx of Preganancy in last 3 Months Nurse Filling Out Transfusion & Questions: Date: Time: Patient unable to answer at this time (ie. confused, unrespo /Reproduction History /Reproductive History - manager medical device: /Reproductive Hx- manager medical device Hx Now No 06/23/24 11:24 Gestational Age (in weeks): EDC: Hx Hx Para Hx Section SAB No 11/27/23 12:44 Active Medications Active Medications: Current Medications Generic Name Dose Route Start Last Admin Trade Name Freq PRN Reason Stop Dose Admin Sodium Chloride 1,000 mls @ 60 mls/hr 06/23/24 13:00 IV .[id number] [facility] Morphine Sulfate 2 - 4 mg 06/23/24 12:59 Morphine 2 Mg/Ml Syringe IV Q2H PRN PRN Pain Score 4-10 Morphine Sulfate 2 - 4 mg 06/23/24 13:10 Morphine 4 Mg/Ml Syringe IV Q2H PRN PRN Pain Score 4-10 Ondansetron HCl 4 mg 06/23/24 12:59 Ondansetron 4 Mg/2 Ml Vial IV Q6H PRN PRN NAUSEA/VOMITING Sodium Chloride 10 - 40 ml 06/23/24 12:59 0.9% Saline Lock 10 Ml Syringe IV UD PRN SALINE FLUSH PFSH Medical History PONV (postoperative nausea and vomiting) Post-menopausal Depression Anxiety Migraine headache Ulcerative colitis History of IBS Gastric reflux Non-smoker History of stress test Vitamin D deficiency Hyperlipemia Anxiety and depression Migraine Insomnia Sleep disorder Carpal tunnel syndrome GERD without esophagitis IBS (irritable bowel syndrome) Neck pain Plantar fasciitis Endometriosis DVT (deep venous thrombosis) Ulcerative colitis Home Medications ?Medication ?Instructions ?Recorded ?Last Taken ?Type bupropion HCl 150 mg 24 hr tablet, 150 mg PO QAM 01/1606/22/24 History extended release (Wellbutrin XL) omalizumab 150 mg subcutaneous 300 mg subcut .COMPLEX CHRONIC 04/04/22 Unknown History solution (Xolair) HIVES Lactobacillus acidophilus 10 10,000 mmu cells PO DAILY 07/12/22 12/23/23 History billion cell capsule (Probiotic) eletriptan 40 mg tablet 40 mg PO DAILY PRN headache 06/23/24 Unknown History escitalopram oxalate 10 mg tablet 10 mg PO DAILY 06/2306/22/24 History omeprazole 20 mg capsule,delayed 20 mg PO DAILY Unknown History release zolpidem 12.5 mg tablet,extended 12.5 mg PO QHS PRN in somnia 06/23/24 Unknown History release,multiphase Allergy/AdvReac Type Severity Reaction Status Date / Time codeine Allergy Hives Verified 06/23/24 07:26 Penicillins (PCN) Allergy Hives Verified 06/23/24 07:26 Family History Father Colon cancer Myocardial infarction Grandfather Myocardial infarction Mother Hypertension Rheumatic heart disease Other Heart disease Surgical History History of cardiac catheterization Hx of surgical procedure Hx of arthroscopy of right knee Status post breast reduction H/O arthroscopy of left knee Social History household members: spouse 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
--- NOTE | 2024-06-23 15:00 | RAD_ITS ---
EXAM: Intraoperative cholangiogram CLINICAL HISTORY: Abdominal pain TECHNIQUE: 14 seconds of fluoroscopy of the abdomen was utilized in the operating room during intraoperative cholangiogram and a cine run is submitted for interpretation. FINDINGS: Cannula seen within the cystic duct remnant. Contrast is seen throughout the biliary tree with spillage through the ampulla into the duodenum. No filling defect to suggest common bile duct stone. RAD/Cholangiogram/ O R,Initial IMPRESSION: No common bile duct stone. Reading Location: [id number]
--- NOTE | 2024-06-23 15:20 | GALL_PTH ---
PATIENT: JAVON GUEVARA LOC: [facility] U#:[id number] AGE/SX: 54/F ROOM: [facility] [place]06/23/[address]: Dr. Deni Dykes MD : 1970 BED: 1 DIS: 06/25/2024 SPEC #: [id number] RECD: 06/24/24 08:51 STATUS: FELIPE ALAMO #: [id number] GAGANDEEP: 06/23/24 15:[address]: Deni Dykes DEPT: SURGICAL PATHOLOGY RECD BY: Chad Phillip ENTERED: 06/24/24 10:54 SP TYPE: DRU ZAMUDIO DR: Dr. Charo Hooper MD Tissues: A - Gallbladder, NOS Procedures: Surgery Specimen Level III HEADER OPERATION: Laparoscopic, cholecystectomy with IOC PRE-OP DIAGNOSIS: Cholelithiasis TISSUE SUBMITTED: A- Gallbladder MICROSCOPIC DIAGNOSIS A. Gallbladder, cholecystectomy: * Mild chronic cholecystitis with cholelithiasis * One benign lymph node MICROSCOPIC DESCRIPTION Slides are reviewed. GROSS DESCRIPTION A. Received in formalin in a container labeled with the patient's name, date of , and gallbladder is a 10.8 x 4.0 x 3.3 cm intact cholecystectomy specimen. A clamped possible cystic duct margin is identified measuring 0.2 cm in length by 0.2 cm in diameter (inked black). Adjacent to the possible cystic duct is a 0.6 x 0.5 x 0.5 cm freitas-pink periductal lymph node candidate. It is bisected to reveal unremarkable surfaces. The serosa is within normal limits and the specimen is opened to reveal an abundance of thick green bile with a 3.8 cm in greatest dimension firm and roughened stone. The mucosa is bile-stained green, somewhat trabecular, with scattered gold speckles. There is an average wall thickness of 0.4 cm. Can Handler sections:A1. Cystic duct margin, en face with lymph node candidate bisectedA2. Full-thickness sections [facility] 06-24-2024 CPT:[id number]
[2024-06-23] MEDS: Bupiv/Epi 0.25% 30 ML Vial (15:58)
--- NOTE | 2024-06-23 16:11 | OP.PCM_ITS ---
Operative Report (Standard) Operative Information Date of Procedure: 06/23/24 Pre-Operative Diagnosis: Acute cholecystitis Post-Operative Diagnosis: Acute cholecystitis Surgery/Procedure Performed: Laparoscopic cholecystectomy with cholangiograms digital advisor: Yes Ball Truing Machine Operator: Layla Duncan Tasks completed by first aid trainer: Opening, Closing and Retracting Type of Anesthesia: General/Regional RN Documented Start/Stop Times: Operation Date: 06/23/24 15:20 Case Time Into Pre-Op 06/23/24 14:02 Anesthesia Start 06/23/24 15:04 Into Room 06/23/24 15:04 Procedure Start 06/23/24 15:21 Procedure End 06/23/24 16:03 Procedure Start Time: 15:21 Procedure Stop Time: 16:03 Select all DRAINS/GRAFTS/IMPLANTS that apply: Drains Drain details: JONO to bulb suction Estimated Blood Loss: 10 Specimen collected: Yes Description of specimen(s) removed: Gallbladder Description of surgery: After obtaining informed consent patient was brought back to the operating room. General anesthesia was induced. The abdomen was prepped and draped in usual sterile fashion. A small midline incision was made superior to the umbilicus and deepened to the level of fascia. The fascia was elevated and incised. Next the peritoneum was elevated and incised in the same fashion. Finger sweep was performed and the Granados trocar was placed into the abdomen. The balloon was inflated. The abdomen was inflated to 15 mmHg. Next a camera was introduced into the abdomen and the abdomen was inspected. Next under direct visualization three 5-mm ports were placed one subxiphoid and 2 subcostal. Next the gallbladder was elevated and retracted toward the right shoulder. The peritoneum was stripped from the gallbladder. The gallbladder was inflamed with edematous surrounding fat. The infundibulum was located and retracted laterally. Next the triangle of Calot was dissected and the cystic duct and cystic artery were identified. Cholangiograms were performed. The Shea clamp was used to clamp across the infundibulum and the catheter needle was inserted into the gallbladder. Under fluoroscopy contrast was instilled into the gallbladder and the common duct, cystic duct as well as proximal hepatic ducts were identified. There was good filling of the duodenum. There were no filling defects noted in the common bile duct. The clamp was removed as well as the needle and the infundibulum was grasped once more. Three hemolock clips were placed across the cystic duct. The cystic duct was then divided leaving 2 clips on the stump. The cystic artery was clipped and divided in the same fashion. The hook cautery was then used to take the gallbladder off of the gallbladder bed. Hemostasis was obtained. Gallbladder fossa was irrigated and there was noted to be leaking bile higher up on the gallbladder fossa. There is likely a small accessory duct. Clips were placed. Next the camera was introduced in the subxiphoid port. An Endopouch bag was placed through the umbilical port and the gallbladder was placed into it. The gallbladder was then removed through the umbilical incision. The camera was then reinserted through the umbilical port. The gallbladder fossa was inspected once more and noted to be hemostatic with minimal bile staining. A 15 Icelandic round drain was placed through the lateral right upper quadrant incision and placed into the gallbladder fossa. It was sutured to the skin using 4-0 nylon. The abdomen was suctioned dry. The 5 mm ports were removed under direct visualization. The umbilical port was then removed and the air was removed from the abdomen. Next using an 0 Vicryl suture the umbilical fascia was closed in a [id number] fashion. The umbilical port site was irrigated local anesthetic was administered to all the incisions. All the incisions were closed with interrupted subcuticular 4-0 Monocryl sutures followed by Steri-Strips and dressings. The patient was awoken and taken to PACU in stable condition. Surgical Findings: Duct of Luschka in the gallbladder fossa, drain in place, wound class contaminated Complications Complications: No Admit VTE Documentation VTE Mechan Device Prophylaxis: SCD's
--- NOTE | 2024-06-23 16:34 | PCM.POST.ANE ---
Anesthesia: Postop Eval I Current Vital Signs Temperature: 97 F Pulse Rate: 84 Blood Pressure: 177/89 Respiratory Rate: 16 Pulse Ox: 97 Oxygen Delivery Method: Simple Mask Oxygen Flow Rate (L/min): 6 Assessment Airway patent: Yes Spontaneous unlabored respirations: Yes Mental status: Awake and Calm nausea: No Vomiting: No Anesthesia Complication: No Fluid Hydration Crystalloid volume administer (ml): 1,000 Total IV fluid infused: 1,000 Progress Note Anesthesia document: Postop Eval 1 completed: Yes
--- NOTE | 2024-06-23 16:47 | POSTOPAN2_ITS ---
Anesthesia Postop Eval I Sum Postop Eval Completion status Anesthesia document: Postop Eval 1 completed: Yes Anesthesia Postop Eval I Summary Anesthesia Postop Eval I Summary: Anesthesia Postop Eval I: Assessment Summary Airway patent Yes 06/23/24 16:35 WEB [email or web address] [email or web address] Spontaneous unlabored Yes 06/23/24 16:35 WEB SITE [email or web address] respirations Mental status Awake,Calm 06/23/24 16:35 WEB SITE [email or web address] nausea No 06/23/24 16:35 WEB SITE [email or web address] Vomiting No 06/23/24 16:35 WEB [email or web address] [email or web address] Anesthesia Postop Eval I: Fluid Summary Crystalloid volume administer 1,000 06/23/24 16:35 WEB [email or web address] [email or web address] (ml) Colloids volume administered ( ml) Blood Product volume administered (ml) Total IV fluid infused 1,000 06/23/24 16:35 WEB SITE [email or web address] Anesthesia Postop Eval I: Summary Notes Anesthesia Complication No 06/23/24 16:35 WEB SITE [email or web address] Anesthesia Complication Comment: Post-operative progress note Anesthesia: Postop Eval II Evaluation Mental status: Asleep Pain Level: 2 nausea: No Vomiting: No Complications Anesthesia Complication: No
--- NOTE | 2024-06-23 16:47 | PCM.POSTANE2 ---
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 Spontaneous unlabored Yes 06/23/24 16:35 MACHINE BINDER [email or web address] respirations Mental status Awake,Calm 06/23/24 16:35 MACHINE BINDER [email or web address] nausea No 06/23/24 16:35 MACHINE BINDER [email or web address] Vomiting No 06/23/24 16:35 MACHINE BINDER [email or web address] Anesthesia Postop Eval I: Fluid Summary Crystalloid volume administer 1,000 06/23/24 16:35 MACHINE BINDER [email or web address] (ml) Colloids volume administered ( ml) Blood Product volume administered (ml) Total IV fluid infused 1,000 06/23/24 16:35 MACHINE BINDER [email or web address] Anesthesia Postop Eval I: Summary Notes Anesthesia Complication No 06/23/24 16:35 MACHINE BINDER [email or web address].[email or web address] Anesthesia Complication Comment: Post-operative progress note Anesthesia: Postop Eval II Evaluation Mental status: Asleep Pain Level: 2 nausea: No Vomiting: No Complications Anesthesia Complication: No
[2024-06-23] MEDS: Morphine 2 MG/ML Syringe IV ×2 (19:58→22:26)
[2024-06-23] MEDS: 0.9% Normal Saline (1000mL) 1,000 ML 60 ML IV (22:14)
[2024-06-24 02:00] VITALS: BP 119/68; PULSE 83; RESP 16; TEMP 36.6; O2SAT 95
[2024-06-24] MEDS: Morphine 2 MG/ML Syringe IV ×2 (04:18→07:30)
[2024-06-24 06:00] VITALS: BP 130/81; PULSE 80; RESP 16; TEMP 36.6; O2SAT 95
[2024-06-24] MEDS: 0.9% Saline Lock 10 ML Syringe IV (07:30)
--- NOTE | 2024-06-24 07:30 | PN.SURG_ITS ---
Subjective Subjective Patient reports that her pain is improved since yesterday. Objective Data Objective Data Vital Signs: Vital Signs Temp Pulse Resp BP Pulse Ox O2 Del Method O2 Flow Rate 97.8 F 80 16 130/81 H 95 Nasal Cannula 2 06/24/24 06:00 06/24/24 06:00 06/24/24 06:00 06/24/24 06:00 06/24/24 06:00 06/24/24 06:00 06/24/24 06:00 Oxygen Flow Rate (L/min) 2 Oxygen Delivery Method Nasal Cannula Weight: 226 lb 1.6 oz Body Mass Index (BMI) 35.4 Intake & Output: Intake and Output for Last 24 Hours 06/22/24 06/23/24 06/24/24 23:59 23:59 23:59 Intake Total 1300 / 1300 Output Total 60 / 60 Balance 1280 / 1240 -60 / -60 Lab / Micro Data 06/23/24 07:44 06/23/24 07:44 Labs: Laboratory Results - last 24 hr 06/23/24 07:44: WBC 9.2, RBC 4.22, Hgb 13.3, Hct 37.5, MCV 88.9, MCH 31.5, MCHC 35.5, RDW Std Deviation 38.1, RDW Coeff of [place] 12.0, Plt Count 233, MPV 10.1, Immature Gran % (Auto) 0.200, Neut % (Auto) 65.8, Lymph % (Auto) 25.9, [place] % (Auto) 6.6, Eos % (Auto) 1.1, Baso % (Auto) 0.4, Absolute Neuts (auto) 6.0, Absolute Lymphs (auto) 2.37, Nucleated RBC % 0, Sodium 141, Potassium 3.8, Chloride 106, Carbon Dioxide 22.8, Anion Gap 12, BUN 19, Creatinine 0.78, Estim Creat Clear Calc 100.07, Est GFR (MDRD) Non-Af 90, BUN/Creatinine Ratio 23.6 H, Glucose 115 H, Calcium 10.1, Total Bilirubin 0.34, Direct Bilirubin 0.14, AST 21, ALT 19, Alkaline Phosphatase 99, Total Protein 7.2, Albumin 4.3, Globulin 2.9, Lipase 33, HCG, Quant 7, Serum , Qual POSITIVE, Urine Color Yellow, Urine Clarity Clear, Urine pH 7.0, Ur Specific [place] 1.015, Urine Protein 15 H, Urine Glucose (UA) Normal, Urine Ketones Negative, Urine Occult Blood Negative, Urine Nitrite Negative, Urine Bilirubin Negative, Urine Urobilinogen Normal, Ur Leukocyte Esterase 25 H, Urine RBC 0-5 SEEN, Urine WBC 0-5 SEEN, Ur Squamous Epith Cells 0-5 SEEN, Urine Bacteria 1+, Urine Mucus 0 SEEN Radiography Diagnostic Testing: Radiology Impression Abdomen Ultrasound 06/23/24 09:13 IMPRESSION: 1. Cholelithiasis including a stone in the gallbladder neck, with findings equivocal for acute cholecystitis including mild wall thickening, however notably without visualized pericholecystic fluid and with a reported negative sonographic Torres's sign which should be confirmed by clinician exam. Alternative etiologies for gallbladder wall thickening include third-spacing, altered hemodynamics/venous congestion, or reactive to a primarily hepatic process. Correlate with presentation. If there is persistent clinical ambiguity, consider HIDA. Top-normal caliber of the CBD. 2. Borderline evidence of hepatic steatosis. Correlate with clinical and laboratory evidence of chronic liver disease. 3. Additional description as above. Reading Location: [id number] Cholangiogram 06/23/24 15:00 IMPRESSION: No common bile duct stone. Reading Location: [id number] Physical Exam Const oriented x3 and no apparent distress Resp normal respiratory effort GI soft to palpation Assessment & Plan Assessment/Plan (1) Cholelithiasis: (2) Bile leak from accessory bile duct: PLAN: Plan Patient is postop day 1 from laparoscopic cholecystectomy. She had an accessory duct in the gallbladder fossa that was leaking bile. A drain was placed. JONO put out about 40 cc overnight. It did not appear overly bilious but I was unable to assess the drain before it was empty. I will advance her diet. Continue JONO drainage. If the leak does not stop or increases with diet I will consult Dr. Coelho for an ERCP and stent placement Deni Dykes MD Pager: [facility] [address] [place] [address], [address] [place] [address] Office:
[2024-06-24 07:52] LABS: Absolute Lymphocyte Count 0.87 X10^3/uL (0.83-4.51); Basophil# 0.01 X10^3/uL; Basophil% 0.1 % (0-1); Hematocrit 33.7 % (37-47); Hemoglobin 11.5 g/dL (12.0-15.0); Lymphocyte # 0.87 X10^3/ul (0.83-4.51); Lymphocyte % 10.4 % (19-41); Mean Corp Hgb Conc 34.1 g/dL (32-36); Mean Corpuscular Hgb 31.2 pg (27.0-32.0); Mean Corpuscular Volume 91.3 fL (81-99); Mean Platelet Vol. 10.4 fl (6.2-12.0); Monocyte# 0.41 X10^3/uL; Monocyte% 4.9 % (0-10); NRBC Flagged by Analyzer 0 % (0-5); Neutrophil # 7.04 X10^3/uL (2.7-7.7); Neutrophil % 84.4 % (47-70); Platelet Count 208 K/mm3 (150-450); RBC Distribution Width CV 12.1 % (11.6-14.6); RBC Distribution Width SD 40.8 fl (35.1-43.9); Red Blood Count 3.69 M/mm3 (4.2-5.4); White Blood Count 8.4 K/mm3 (4.4-11.0)
[2024-06-24 08:18] LABS: ALB/GLOB Ratio 1.4 RATIO (0.9-2.4); AST(SGOT) 118 U/L (<=31); Alanine Aminotransfer ALT/SGPT 188 U/L (<=34); Albumin, Serum 3.8 g/dL (3.5-5.0); Alkaline Phosphatase 93 U/L (35-104); Anion Gap 8 (5-15); BUN 8 mg/dL (4-19); BUN/Creat Ratio 12.4 RATIO (10-20); Calcium,Total 8.9 mg/dL (7.6-11.0); Carbon Dioxide 26.1 mmol/L (21.0-32.0); Chloride 107 mmol/L (98-108); Creatinine, Serum 0.68 mg/dL (0.70-1.20); EST Glomerular Filtration Rate 103 (>60); Estimated Creatinine Clearance 116.43 ml/min (50-250); Globulin 2.6 g/dL (2.2-4.2); Glucose 113 mg/dL (70-99); Potassium 4.8 mmol/L (3.3-5.1); Protein, Total 6.4 g/dL (5.9-8.4); Sodium Level 141 mmol/L (133-145); Total Bilirubin 0.45 mg/dL (0.00-1.30)
[2024-06-24 09:28] VITALS: BP 130/80; PULSE 74; RESP 16; TEMP 36.9; O2SAT 95
[2024-06-24] MEDS: Pantoprazole Sodium 20 MG Tablet PO (10:02)
[2024-06-24] MEDS: Escitalopram Oxalate 10 MG Tablet PO (10:02)
[2024-06-24] MEDS: buPROPion (XL) 150 MG TABLET.XL PO (10:02)
[2024-06-24] MEDS: oxyCODONE 5 MG Tablet PO ×3 (11:33→20:18)
[2024-06-24] MEDS: 0.9% Normal Saline (1000mL) 1,000 ML 60 ML IV (15:03)
[2024-06-24 15:08] VITALS: BP 138/83; PULSE 75; RESP 16; TEMP 36.8; O2SAT 95
[2024-06-24 21:00] VITALS: BP 140/75; PULSE 58; RESP 14; TEMP 36.4; O2SAT 96
[2024-06-25] MEDS: oxyCODONE 5 MG Tablet PO ×3 (02:13→13:38)
[2024-06-25 02:39] VITALS: BP 131/76; PULSE 94; RESP 14; TEMP 36.5; O2SAT 96
[2024-06-25] MEDS: 0.9% Normal Saline (1000mL) 1,000 ML 60 ML IV (06:49)
[2024-06-25 07:10] VITALS: O2SAT 96
[2024-06-25 07:40] VITALS: BP 125/78; PULSE 61; RESP 16; TEMP 36.7; O2SAT 98
[2024-06-25] MEDS: buPROPion (XL) 150 MG TABLET.XL PO (07:46)
[2024-06-25] MEDS: Escitalopram Oxalate 10 MG Tablet PO (07:47)
[2024-06-25] MEDS: Pantoprazole Sodium 20 MG Tablet PO (07:47)
[2024-06-25 07:58] LABS: Absolute Neutrophil Count 5.5 X10^3/uL (2.0-7.7); Basophil# 0.04 X10^3/uL; Basophil% 0.4 % (0-1); Eosinophil# 0.04 X10^3/uL; Eosinophils% 0.4 % (0-5); Hematocrit 34.5 % (37-47); Hemoglobin 11.3 g/dL (12.0-15.0); Mean Corp Hgb Conc 32.8 g/dL (32-36); Mean Corpuscular Hgb 30.4 pg (27.0-32.0); Mean Corpuscular Volume 92.7 fL (81-99); Mean Platelet Vol. 10.8 fl (6.2-12.0); Monocyte# 0.63 X10^3/uL; Monocyte% 6.7 % (0-10); NRBC Flagged by Analyzer 0 % (0-5); Neutrophil # 5.53 X10^3/uL (2.7-7.7); Neutrophil % 59.1 % (47-70); Platelet Count 209 K/mm3 (150-450); RBC Distribution Width CV 12.6 % (11.6-14.6); RBC Distribution Width SD 42.4 fl (35.1-43.9); Red Blood Count 3.72 M/mm3 (4.2-5.4); White Blood Count 9.4 K/mm3 (4.4-11.0)
[2024-06-25 09:13] LABS: ALB/GLOB Ratio 1.4 RATIO (0.9-2.4); AST(SGOT) 74 U/L (<=31); Alanine Aminotransfer ALT/SGPT 159 U/L (<=34); Albumin, Serum 3.8 g/dL (3.5-5.0); Alkaline Phosphatase 91 U/L (35-104); Anion Gap 10 (5-15); BUN 10 mg/dL (4-19); BUN/Creat Ratio 12.8 RATIO (10-20); Calcium,Total 8.8 mg/dL (7.6-11.0); Carbon Dioxide 25.8 mmol/L (21.0-32.0); Chloride 104 mmol/L (98-108); EST Glomerular Filtration Rate 87 (>60); Estimated Creatinine Clearance 98.97 ml/min (50-250); Globulin 2.8 g/dL (2.2-4.2); Glucose 87 mg/dL (70-99); Potassium 3.2 mmol/L (3.3-5.1); Protein, Total 6.6 g/dL (5.9-8.4); Sodium Level 139 mmol/L (133-145); Total Bilirubin 0.57 mg/dL (0.00-1.30)
--- NOTE | 2024-06-25 09:44 | PN.SURG_ITS ---
Subjective Subjective Patient is doing well with no complaints that she is feeling better than she did yesterday. She tolerated clear liquids yesterday. Her drain is still serosanguineous. Objective Data Objective Data Vital Signs: Vital Signs Temp Pulse Resp BP Pulse Ox O2 Del Method O2 Flow Rate 98.0 F 61 16 125/78 H 98 Room Air 2 06/25/24 07:40 06/25/24 07:40 06/25/24 07:40 06/25/24 07:40 06/25/24 07:40 06/25/24 07:40 06/24/24 06:00 Oxygen Flow Rate (L/min) 2 Oxygen Delivery Method Room Air Weight: 226 lb 1.6 oz Body Mass Index (BMI) 35.4 Intake & Output: Intake and Output for Last 24 Hours 06/23/24 06/24/24 06/25/24 23:59 23:59 23:59 Intake Total 1300 / 1300 1000 / 1000 946 / 946 Output Total 20 / 60 80 / 140 90 / 90 Balance 1280 / 1240 920 / 860 856 / 856 Lab / Micro Data 06/25/24 06:25 06/25/24 06:25 Labs: Laboratory Results - last 24 hr 06/25/24 06:25: WBC 9.4, RBC 3.72 L, Hgb 11.3 L, Hct 34.5 L, MCV 92.7, MCH 30.4, MCHC 32.8, RDW Std Deviation 42.4, RDW Coeff of [place] 12.6, Plt Count 209, MPV 10.8, Immature Gran % (Auto) 0.400, Neut % (Auto) 59.1, Lymph % (Auto) 33.0, [place] % (Auto) 6.7, Eos % (Auto) 0.4, Baso % (Auto) 0.4, Absolute Neuts (auto) 5.5, Absolute Lymphs (auto) 3.10, Nucleated RBC % 0, Sodium 139, Potassium 3.2 L , Chloride 104, Carbon Dioxide 25.8, Anion Gap 10, BUN 10, Creatinine 0.80, Estim Creat Clear Calc 98.97, Est GFR (MDRD) Non-Af 87, BUN/Creatinine Ratio 12.8, Glucose 87, Calcium 8.8, Total Bilirubin 0.57, AST 74 H, ALT 159 H, Alkaline Phosphatase 91, Total Protein 6.6, Albumin 3.8, Globulin 2.8, Albumin/Globulin Ratio 1.4 Assessment & Plan Assessment/Plan (1) Bile leak from accessory bile duct: (2) Cholelithiasis: PLAN: Plan Patient appears to be doing well postoperative day 2 from laparoscopic cholecystectomy. I will discharge her home today with a drain in place and follow-up on Saturday for drain removal as long as it stays nonbilious. Deni Dykes MD Pager: [facility] [place] [facility] [address] [place] [address] Office:
--- NOTE | 2024-06-25 09:45 | DS.PCM_ITS ---
Providers Date of Admission: 06/23/24 Primary Care Physician: Dr. Charo Hooper MD Reason For Visit: BILIARY COLIC CHOLELITHIASIS Diagnosis Discharge Diagnosis (1) Bile leak from accessory bile duct: Status: Acute Code(s): K83.8 - Other specified diseases of biliary tract (2) Cholelithiasis: Status: Acute Code(s): K80.20 - Calculus of gallbladder without cholecystitis without obstruction Plan Patient appears to be doing well postoperative day 2 from laparoscopic cholecystectomy. I will discharge her home today with a drain in place and follow-up on Saturday for drain removal as long as it stays nonbilious. Deni Dykes MD Pager: [facility] [address] [place] [address] [address] [place] [address] Office: Medications at Discharge Home Medications bupropion HCl 150 mg 24 hr tablet, extended release (Wellbutrin XL) 150 mg PO QAM 01/16/22 omalizumab 150 mg subcutaneous solution (Xolair) 300 mg subcut .COMPLEX CHRONIC HIVES 04/04/22 Lactobacillus acidophilus 10 billion cell capsule (Probiotic) 10,000 mmu cells PO DAILY 07/12/22 eletriptan 40 mg tablet 40 mg PO DAILY PRN headache 06/23/24 escitalopram oxalate 10 mg tablet 10 mg PO DAILY 06/23/24 omeprazole 20 mg capsule,delayed release 20 mg PO DAILY 06/23/24 zolpidem 12.5 mg tablet,extended release,multiphase 12.5 mg PO QHS PRN insomnia 06/23/24 oxycodone 5 mg tablet 5 - 10 mg (1 - 2 x 5 mg) PO Q4H PRN PRN Pain Score 4-10 5 days #14 tabs 06/25/24 Hospital Course Operations cholecystecomy Procedures None Summary of Care Provided Hospital Course: Patient presented with acute cholecystitis and was taken for surgery and found to have an accessory duct in the gallbladder fossa that was leaking bile. Clips were placed and a drain was placed. The patient has nonbilious drainage and is tolerating a diet. She will be discharged home with a drain in place of her to be removed on Saturday. If there is any sign of bile leak I will consult Dr. Coelho for ERCP and stent placement. Weight / BMI Weight Weight: 226 lb 1.6 oz Body Mass Index (BMI) 35.4 ABG / Lab / Microbiology Data 06/25/24 06:25 06/25/24 06:25 Laboratory: Laboratory Results - last 24 hr 06/25/24 06:25: WBC 9.4, RBC 3.72 L, Hgb 11.3 L, Hct 34.5 L, MCV 92.7, MCH 30.4, MCHC 32.8, RDW Std Deviation 42.4, RDW Coeff of [place] 12.6, Plt Count 209, MPV 10.8, Immature Gran % (Auto) 0.400, Neut % (Auto) 59.1, Lymph % (Auto) 33.0, [place] % (Auto) 6.7, Eos % (Auto) 0.4, Baso % (Auto) 0.4, Absolute Neuts (auto) 5.5, Absolute Lymphs (auto) 3.10, Nucleated RBC % 0, Sodium 139, Potassium 3.2 L , Chloride 104, Carbon Dioxide 25.8, Anion Gap 10, BUN 10, Creatinine 0.80, Estim Creat Clear Calc 98.97, Est GFR (MDRD) Non-Af 87, BUN/Creatinine Ratio 12.8, Glucose 87, Calcium 8.8, Total Bilirubin 0.57, AST 74 H, ALT 159 H, Alkaline Phosphatase 91, Total Protein 6.6, Albumin 3.8, Globulin 2.8, Albumin/Globulin Ratio 1.4 D/C Instructions Discharge Diet: Light diet - advance as tolerated Discharge Activity: May Not Drive (for 2-3 days or while taking narcotic pain medications.) and - (Do not drive, work heavy equipment or sign legal documents for 24 hours.) May shower in (days): 1 Lifting Restrictions: 20 lbs for 2 weeks Additional Activity Instructions: Pain medication may cause nausea. You should typically eat light foods as you take your pain medications. Pain medication may also cause constipation. If this is a problem for you, please discuss with your doctor. Call your doctor if your incision/area has: Continuous Slow Oozing, Sudden Increased Bleeding, Increased Pain/ Swelling, Increased Redness and Foul Smelling Discharge Call your doctor if you observe: Fever of 101 or Higher Suture Line Care: Avoid Pulling/Pushing and Avoid Pinching/Bending Remove Dressing in: 2 days Drain: Suction Additional Dressing/Incision Instructions: Leave operative bandaids on for 2 days. When you remove dressing, leave Steri-Strips on until your follow-up appointment, or until the Steri-Strips fall off on their own. DC O2, CPAP, BIPAP Needs Home O2 Discharge instructions: No Please Follow Up With: Deni Dykes MD When: Thursday 06/29 at 930 Meaningful Use Info Meaningful Use Meaningful Use Diagnoses (Choose all that apply): None applicable Ischemic Stroke Statin Dosing Therapy Reference: STATIN DOSE THERAPY REFERENCE: * Patients > 75 years receive moderate or high dose statin therapy. * Patients 75 years or YOUNGER should receive HIGH intensity statin dose unless contraindicated. You will be required to document reason for non-treatment if statin daily dose does not meet guidelines. HIGH DOSE STATIN THERAPY DAILY Atorvastatin > than or = to 40 mg Rosuvastatin > than or = to 20 mg Amlodipine + Atorvastatin > than or = to 2.5/40 mg Ezetimibe + Simvastatin 10/80 mg Simvastatin 80mg Discharge Plan Admission Admit Date/Time: 06/23/24 12:59 Attending Provider: Deni Dykes Primary Care Provider: Charo Hooper Discharge Orders/Prescriptions Prescriptions: New oxycodone 5 mg Tablet 5 - 10 mg PO Q4H PRN PRN (Reason: Pain Score 4-10) 5 Days Qty: 14 0RF Continued bupropion HCl [Wellbutrin XL] 150 mg tablet extended release 24 hr 150 mg PO QAM Xolair 150 mg recon soln 300 mg subcut .COMPLEX Patient Comments: PT HAS NOT TAKEN IN 3 MONTHS Rx Instructions: 300 mg subcutaneously EVERY 8 WEEKS; requires multiple injection sites; do not exceed 150 mg per injection site Probiotic 10 billion cell Capsule 10,000 mmu cells PO DAILY eletriptan 40 mg tablet 40 mg PO DAILY PRN (Reason: headache) escitalopram oxalate 10 mg tablet 10 mg PO DAILY zolpidem 12.5 mg tablet,ext release multiphase 12.5 mg PO QHS PRN (Reason: insomnia) omeprazole 20 mg capsule,delayed release(DR/EC) 20 mg PO DAILY Patient Comments: PT TAKES PRN Referrals / Follow Up: Charo Hooper MD [Primary Care Provider] - Jina Bowling PA-C [Med Staff - Adv Practice Prof] - 06/29/24 9:30 am Disposition Disposition (needs filled in before D/C Order can be placed): Home, Self Care
--- NOTE | 2024-06-25 10:04 | CASEMGMT ---
Pt has dc order placed. RN CM into pt room, pt states she is typically indep at home. Pt does not use AD. Pt will dc with JONO drain. Pt states that she feels comfortable with this and is aware the nurse will review. Pt denies any homegoing needs.
[2024-06-25 13:27] VITALS: BP 131/80; PULSE 72; RESP 16; TEMP 36.8; O2SAT 97
== END 2024-06-25 14:30 | disposition home or self-care (01) ==
LOC: ED 11:45 → SDC 12:00 → ACINP 12:01 → SDC 15:59 → MS3 15:59
PROVIDERS: Physician Assistant; Admitting Provider Surgery; Emergency Provider Emergency Medicine; PCP Internal Medicine; Visit Provider Surgery
PROC: (CPT 47610; principal; 2024-06-23 15:00)
DX: K80.12 Calculus of gallbladder with acute and chronic cholecystitis without obstruction (principal); K51.90 Ulcerative colitis, unspecified, without complications; K83.8 Other specified diseases of biliary tract; E78.5 Hyperlipidemia, unspecified; F32.A Depression, unspecified; F41.9 Anxiety disorder, unspecified; Z79.899 Other long term (current) drug therapy; Z88.0 Allergy status to penicillin
CPT/HCPCS: 47563; 00790; 36415; 74300; 76000; 76705; 80048; 80053; 80076; 81001; 83690; 84702; 84703; 85025; 88304; 93005; 96361; 96365; 96375; 96376; 99221; 99284; A4216; G0378; J0744; J2405

== ENCOUNTER → 2024-11-04 | Outpatient (CLI) | payer OTHER, SELFPAY ==
--- NOTE | 2024-11-04 14:45 | BI_ITS ---
EXAM: SCRN MAMM (CAD)W/NERI BILAT DATE: 11/04/2024 CLINICAL HISTORY: F, Age 54 y/o , BILAT BRST SCREEN NERI ADD-ON No family history. History of prior bilateral breast reduction surgery. TECHNIQUE: Procedure Code: [id number] Modality: MG Procedure: SCRN MAMM (CAD)W/NERI BILAT COMPARISON: Prior exam(s) dated September 02, 2023.. FINDINGS: TISSUE DENSITY: The breasts are heterogeneously dense, which may obscure small masses. Bilateral Breast Mammographic Findings: No significant masses, calcifications or other abnormalities are identified. Stable fat containing bilateral axillary lymph nodes. No suspicious masses, areas of developing architectural distortion, or suspicious calcifications. There has been no significant interval change. BI/SCRN MAMM (CAD)W/NERI BILAT IMPRESSION: Stable bilateral screening mammogram. OVERALL FINAL ASSESSMENT BI-RADS 2: BENIGN RECOMMENDATION: Routine annual follow-up in 1 Year A letter with findings and recommendations will be mailed to the patient. Reading Location: [facility]
== END | disposition home or self-care (01) ==
LOC: OPBI 14:30
PROVIDERS: PCP Internal Medicine; Referring Provider Internal Medicine; Visit Provider Internal Medicine
DX: Z12.31 Encounter for screening mammogram for malignant neoplasm of breast (principal)
CPT/HCPCS: 77063; 77067

== ENCOUNTER → 2024-11-06 | Outpatient (CLI) | payer OTHER, SELFPAY ==
--- NOTE | 2024-11-06 13:40 | CT_ITS ---
PROCEDURE: LIMITED CHEST CT CARDIAC ONLY 11/06/2024 REASON FOR EXAM: FAMINLY HISTORY OF ISCHEMIC HEART DISEASE TECHNIQUE: Procedure Code: [id number] Modality: CT Procedure: LIMITED CHEST CT CARDIAC ONLY CONTRAST: None One or more dose reduction techniques were used (e.g., Automated exposure control, adjustment of the mA and/or kV according to patient size, use of iterative reconstruction technique). RADIATION DOSE SUMMARY: CTDlvol: 12.19 mGy DLP: 195.04 mGycm COMPARISON: None FINDINGS: Small benign-appearing mediastinal lymph nodes. Minimal coronary calcification seen in the circumflex artery. The heart is nonenlarged. The lungs are clear. CT/Limited Chest CT Cardiac Only IMPRESSION: Minimal coronary calcification seen in the circumflex artery. The lungs are clear. Reading Location: [id number]
--- NOTE | 2024-11-12 11:14 | CCTA_ITS ---
Calcium Scoring Date of Study:: 11/06/24 Indications Indications: Family history of ischemic heart disease Coronary Calcium Scoring: High-resolution Computed Tomographic imaging of the chest was performed on [11/06/2024], with particular attention paid to the coronary arteries. Images from the examination were analyzed for the presence and extent of coronary artery calcification , using coronary calcium quantification software. The patie nt tolerated the procedure well and there were no complications. The results of the coronary calcification analysis are provided below. Findings Coronary Artery Left Main (LM): 0 Left Anterior Descending (LAD): 0 Left Circumflex (LCX): 15.6 Right Coronary Artery (RCA): 0 Total Agatston Score: 15.6 Percentile Rankin-90 Calcium Scoring Interpretation: Different methods to categorize the overall amount of coronary plaque. Overall amount CAC SIS Visual of coronary plaque P1 Mild -100 <2 1-2 vessels with mild amount of plaque P2 Moderate 101-300 3-4 1-2 vessels with moderate amount, 3 vessels with mild amount of plaque P3 Severe 301-999 5-7 3 vessels with moderate amount, 1 vessel with severe amount of plaque P4 Extensive >1000 >8 2-3 vessels with severe amount of plaque Calcium Score: Mild: 1-2 vessels w/mild amount of plaque Conclusion: Mild premature atherosclerotic plaquing single-vessel noted.
== END | disposition home or self-care (01) ==
LOC: CT 13:25
PROVIDERS: PCP Internal Medicine; Referring Provider Internal Medicine; Visit Provider Internal Medicine
DX: Z00.00 Encounter for general adult medical examination without abnormal findings (principal); Z82.49 Family history of ischemic heart disease and other diseases of the circulatory system
CPT/HCPCS: 75571; 76380

== ENCOUNTER → 2024-11-27 | Outpatient (CLI) | payer OTHER, SELFPAY ==
--- NOTE | 2024-11-29 17:44 | STRESSREP ---
Stress Test Report Date: 11/27/2024 Procedure: Exercise tolerance test/imaging study Indications: Chest pain Consent: Per the patient Procedure: The patient exercised on a Sushil protocol for 5 minutes and 30 seconds achieving a peak heart rate of 151 bpm (90% predicted maximal heart rate) with a peak blood pressure 186/78 mmHg and a peak MET capacity of 7 METs. The baseline ECG demonstrated normal sinus rhythm. The peak exercise ECG demonstrated sinus rhythm with about 1 to [address] depression in the inferior and lateral leads. EKG during recovery revealed sinus rhythm with return of ST segments to baseline [There were no cardiac dysrhythmias pretest, during exercise, or recovery]. The functional capacity was considered normal for age. There was [no complaint of chest discomfort during exercise or recovery]. The examination was discontinued secondary to dyspnea. Impression: 1. Technically adequate (percent predicted maximal heart rate greater than 85%) exercise tolerance test 2. Stress test is positive for exercise-induced EKG changes of ischemia 3. The test test is negative for exercise-induced chest pain 4. Functional capacity is normal for age 5. Nuclear images pending Myocardial perfusion imaging study: Technique: The patient was injected with 15 mCi of technetium 99m Cardiolite and subsequently rest SPECT Cardiolite nuclear imaging was obtained in the horizontal long, vertical long, and short axis views. The patient exercised on a Sushil protocol. Please see above for details. The patient was injected with 44.3 mCi of technetium 99m Cardiolite and subsequently stress SPECT Cardiolite nuclear imaging was obtained in the horizontal long, vertical long, and short axis views. A gated Cardiolite study at peak stress was obtained. Interpretation: Rest and stress SPECT Cardiolite nuclear imaging status post realignment, normalization, and attenuation correction, demonstrates [No evidence of significant ischemia or infarction]. The gated Cardiolite study demonstrates no significant regional wall motion abnormalities. The reported LVEF is greater than 70%. Impression: 1. There is no evidence of significant ischemia or infarction. 2. The gated Cardiolite study reports an LVEF of greater than 70%. This note was generated with [employer] software. It may contain incorrect words, spelling, and punctuation that were not noted in checking the note before signing.
== END | disposition home or self-care (01) ==
LOC: CVS 06:38
PROVIDERS: PCP Internal Medicine; Referring Provider Internal Medicine; Visit Provider Internal Medicine
DX: R07.9 Chest pain, unspecified (principal)
CPT/HCPCS: 78452; 93017; A9500; A4216